=== PATIENT | female | born 1975 | race African-American/Black ===

== ENCOUNTER 2019-06-15 20:24 | Inpatient (IN) | payer OTHER ==
--- NOTE | 2019-06-15 20:30 | PDOC ---
Rapid Medical Evaluation Time Seen by Provider: 06/15/19 20:30 Medical Evaluation: 06/15/19 20:30 I performed a brief in-person evaluation of this patient. 44-year-old female with right upper back abscess for 2 wks, now draining, reports temp 100.0 at home. Pertinent physical exam findings: Afebrile I have ordered the following: None Patient to present to FT for further evaluation. Discharge Disposition - Diagnosis Abscess - Referrals - Patient Instructions - Post Discharge Activity
[2019-06-15 20:35] VITALS: BMI 27.4
--- NOTE | 2019-06-15 22:34 | PDOC ---
*Physical Exam - Vital Signs Last Vital Signs Temp Pulse Resp BP Pulse Ox 98.2 F 100 H 20 182/89 H 99 06/15/19 20:33 06/15/19 20:33 06/15/19 20:33 06/15/19 20:33 06/15/19 20:33 ED Treatment Course - LABORATORY CBC & Chemistry Diagram: 06/16/19 11:33 06/16/19 11:33 Medical Decision Making - Medical Decision Making 06/15/19 22:33 Patient seen by the advanced practice provider under my direct supervision. Ancillary testing reviewed as necessary. I agree with plan as outlined by the advanced practice provider. Discharge - Discharge Information Problems reviewed: Yes Clinical Impression/Diagnosis: Cellulitis of back, Hyperglycemia Disposition: HOME - Follow up/Referral - Patient Discharge Instructions - Post Discharge Activity
[2019-06-15] MEDS ORDERED: CLINDAMYCIN 300 MG PREMIX IVPB 300 MG/50 ML BAG IVPB ONE (22:56)
[2019-06-15 23:15] LABS: BASO % 0.8 % (0-2.0); EOS % 4.4 % (0-4.5); HEMATOCRIT 32.9 % (32.4-45.2); HEMOGLOBIN 11.1 GM/dL (10.7-15.3); LYMPH % 26.7 % (8-40); MCHC 33.8 g/dl (32.0-36.0); MEAN CELL VOLUME 82.8 fl (80-96); NEUT % 59.1 % (42.8-82.8); PLATELET COUNT 496 K/MM3 (134-434); RBC 3.97 M/mm3 (3.60-5.2); RDW 13.3 % (11.6-15.6); WHITE BLOOD COUNT 9.9 K/mm3 (4.0-10.0)
[2019-06-15 23:29] LABS: INR 1.08 (0.83-1.09); PROTHROMBIN TIME (PATIENT) 12.7 SEC (9.7-13.0)
[2019-06-15 23:49] LABS: ALBUMIN 2.3 g/dl (3.4-5.0); BILIRUBIN,TOTAL 0.2 mg/dL (0.2-1); BLOOD UREA NITROGEN 10.5 mg/dL (7-18); CREATININE 0.7 mg/dL (0.55-1.3); POTASSIUM 4.2 mmol/L (3.5-5.1); TOT PROT 7.5 g/dl (6.4-8.2)
[2019-06-15] MEDS ORDERED: SODIUM CHLORIDE 1,000 ML IV STA (23:54)
--- NOTE | 2019-06-15 23:57 | PDOC ---
History of Present Illness - General Chief Complaint: Abscess Boil Stated Complaint: CHILLS/FEVER/ABSCESS ON BACK Time Seen by Provider: 06/15/19 20:30 History Source: Patient - History of Present Illness Initial Comments: 06/16/19 00:22 44-year-old female reports that she has a history of folliculitis noted pimple to the upper back 14 days ago. Patient reports that wound is nonhealing and is draining copious amount of pus. Patient reports that she had fever for couple of days. Denies fever for the last few days. Denies nausea, vomiting, diarrhea , abdominal pain. No past medical history No PCP Past History - Past Medical History Allergies/Adverse Reactions: Allergies Allergy/AdvReac Type Severity Reaction Status Date / Time No Known Allergies Allergy Verified 06/15/19 23:33 Asthma: Yes COPD: No - Psycho Social/Smoking Cessation Hx Smoking History: Never smoked *Physical Exam - Vital Signs Last Vital Signs Temp Pulse Resp BP Pulse Ox 97.9 F 100 H 19 149/81 100 06/15/19 22:55 06/15/19 22:55 06/15/19 22:55 06/15/19 22:55 06/15/19 22:55 - Physical Exam General Appearance: Yes: Appropriately Dressed Respiratory/Chest: positive: Lungs Clear, Normal Breath Sounds Integumentary: positive: Other (cavitating pus drainng wound to right upper back with surrounding erythema) Neurologic: positive: Fully Oriented, Alert ED Treatment Course - LABORATORY CBC & Chemistry Diagram: 06/15/19 22:50 06/15/19 22:50 - ADDITIONAL ORDERS Additional order review: Laboratory Results 06/15/19 06/15/19 22:50 22:50 PT with INR 12.70 INR 1.08 PTT (Actin FS) 36.0 Sodium 134 L Potassium 4.2 Chloride 96 L Carbon Dioxide 33 H Anion Gap 5 L BUN 10.5 Creatinine 0.7 Est GFR (CKD-EPI)AfAm 120.43 Est GFR (CKD-EPI)NonAf 103.90 Random Glucose 435 H* Calcium 9.0 Total Bilirubin 0.2 AST 17 ALT 18 Alkaline Phosphatase 180 H Total Protein 7.5 Albumin 2.3 L 06/15/19 22:50 RBC 3.97 MCV 82.8 MCHC 33.8 RDW 13.3 MPV 9.0 Neutrophils % 59.1 Lymphocytes % 26.7 Monocytes % 9.0 Eosinophils % 4.4 Basophils % 0.8 ED Progress Note - Progress Note Progress Note: 06/16/19 00:44 A: cellulitis and abscess P: labs IVF IV antibiotics Medical Decision Making - Medical Decision Making 06/16/19 03:00 patient signed out to Dr. baltazar/ Dr. Shaw Discharge - Discharge Information Problems reviewed: Yes Clinical Impression/Diagnosis: Cellulitis of back, Hyperglycemia Disposition: HOME - Admission Yes - Follow up/Referral - Patient Discharge Instructions - Post Discharge Activity
--- NOTE | 2019-06-16 02:07 | PN ---
Teaching Attending Note Name of Resident: Juan Currie ATTENDING PHYSICIAN STATEMENT I saw and evaluated the patient. I reviewed the resident's note and discussed the case with the resident. I agree with the resident's findings and plan as documented. SUBJECTIVE: Patient is a 44 year old woman with a PMH of Folliculitis who presents with a pimple to the upper back for 14 days. Patient reports that wound is nonhealing and is draining copious amount of pus. Patient reports that she had fever for couple of days. Denies fever for the last few days. Denies nausea, vomiting, diarrhea, abdominal pain, chest pain, SOB, palpitations, dysuria, headache or dizziness. Denies alcohol, tobacco or illicit drug use. No sick contacts or recent travels. Has FH of DM and HTN in father. 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 LMP was late April 2019. OBJECTIVE: Alert Vital Signs Period Temp Pulse Resp BP Sys/Street Pulse Ox Last 24 Hr 97.9 F-98.2 F 100-100 19-20 149-182/81-89 99-100 HEENT: No Jaundice, eye redness or discharge, PERRLA, EOMI. Normocephalic, atraumatic. External ears are normal and hearing is grossly intact. No nasal discharge. Neck: Supple, nontender. No palpable adenopathy or thyromegaly. No JVD Chest: Good effort. Clear to auscultation and percussion. Heart: Regular. No S3, rub or murmur Abdomen: Not distended, soft, nontender and no HSM. No rebound or guarding. Normal bowel sounds. Ext: Peripheral pulses intact. No leg edema. Skin: Warm and dry. No petechiae, rash or ecchymosis. Abscesses in right upper back with pus drainage and surrounding erythema. Neuro: Alert. Oriented x3. CN 2-12 grossly intact. Sensation grossly intact in all four extremities and DTR are symmetric. Psych: Appropriate mood and affect. Good insight. Abnormal Lab Results 06/15/19 06/15/19 22:50 22:50 Plt Count 496 H Sodium 134 L Chloride 96 L Carbon Dioxide 33 H Anion Gap 5 L Random Glucose 435 H* Alkaline Phosphatase 180 H Albumin 2.3 L ASSESSMENT AND PLAN: 1. Upper back abscess and cellulitis - Wound culture sent and sepsis workup done. Likely has new onset DM - will treat with IV Vancomycin and Zosyn, IV NS and provide daily wound care. Consult ID and Surgery for I&D. EKG shows NSR with LAE, septal infarct of undetermined age, ST-T wave changes suggestive of lateral ischemia. No old EKG available for comparison. Will repeat EKG and get troponin. 2. New onset DM Will get HbA1c, give SQ insulin, start Metformin and implement sliding scale insulin regimen. Continue IV NS, monitor and replete K+ . Consult Endocrine. Provide comprehensive diabetes care with patient teaching and counseling about the importance of adherence to prescribed diabetes regimen , euglycemia, eye care and foot care. Get patient-friendly educational materials about DM for the patient. 3. Hypoalbuminemia - Possibly due to combined effects of malnutrition and inflammation associated with comorbid chronic conditions. Will ensure adequate dietary protein intake and also consult inspector air carrier. 4. Overweight Counseled on the risks associated with being overweight. Will provide patient all the necessary assistance, counseling and positive reinforcement to facilitate weight loss. Consult inspector air carrier. 5. Undiagnosed Hypertension - May have undiagnosed hypertension. Will repeat BP tomorrow and next to confirm. Will start her on Lisinopril 10 mg bid. Patient counseled on the injurious effects of uncontrolled hypertension. Nonpharmacologic measures to control hypertension like weight loss, salt restriction and exercise discussed. Importance of adherence to treatment regimen and attainment of normotension emphasized. 6. DVT prophylaxis - SCD 7. Advance directives - Full code
[2019-06-16 02:36] LABS: URINE APPEARANCE CLEAR; URINE COLOR YELLOW
[2019-06-16 02:37] LABS: PH,URINE 6.5 (5.0-8.0); URINE BILIRUBIN NEGATIVE (NEGATIVE); URINE GLUCOSE (UA) >=1000 (NEGATIVE); URINE KETONE NEGATIVE (NEGATIVE); URINE NITRITE NEGATIVE (NEGATIVE); URINE PROTEIN NEGATIVE (NEGATIVE)
[2019-06-16 02:38] LABS: EPI CELLS 2.8 /HPF (0-5/HPF); HYALINE CASTS 0 /lpf (0-8); URINE BACTERIA 29.8 /hpf (NEGATIVE); URINE LEUK ESTERASE NEGATIVE (NEGATIVE); URINE RBC 1.4 /hpf (0-4); URINE WBC 7.9 /hpf (0-5)
--- NOTE | 2019-06-16 06:01 | HP ---
CHIEF COMPLAINT: Abscess on the posterior aspect of her right shoulder for the past 2 weeks PCP: None HISTORY OF PRESENT ILLNESS: This is a 44 year old female with no significant PMH. She presented to the ER with complaints of an abscess on the posterior aspect of her right shoulder for the past 2 weeks, which has recently began to produce a discharge over the past few days. This has been associated with intermittent fevers and chills, recorded at 102 at home a few days ago, although she is not currently complaining of any chills and is afebrile. She denies any dizziness, AMS, light headedness, SOB, chest pain, palpitations, nausea, vomiting, diarrhea, constipation, dysuria, or hematuria since the abscess appeared. She can think of no inciting events that may have led to the formation of the abscess. She has not used any antibiotics, no new medications, no exposure to swimming pools or hot tubs, no history of shaving around the area, and no sick contacts with similar symptoms. 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 Her symptoms subsided without any treatment, and she has had no recurrence of symptoms. She does not follow with a PCP because she has never had any major symptoms. She has health insurance through her employment, and no socioeconomic barriers to healthcare access were identified. She has never been diagnosed with DM or HTN. ER course was notable for: (1) Clindamycin 300mg (2) Glucose 435 (3) B/P 182/89 -> 149/84 Recent Travel: denies PAST MEDICAL HISTORY: none PAST SURGICAL HISTORY: in 2007 Social History: Smoking: denies Alcohol: denies Drugs: denies Not currently sexually active, no OCP or contraception use, no history of STDs LMP was last week of Apr 2019, no irregularities in menstrual cycle She has not seen a PCP because she has never had any major symptoms. She has health insurance through her employment, and no socioeconomic barriers to healthcare access were identified. Allergies No Known Allergies Allergy (Verified 06/15/19 23:33) HOME MEDICATIONS: REVIEW OF SYSTEMS CONSTITUTIONAL: fevers, chills Absent: fever, chills, diaphoresis, generalized weakness, malaise, loss of appetite, weight change HEENT: Absent: rhinorrhea, nasal congestion, throat pain, throat swelling, difficulty swallowing, mouth swelling, ear pain, eye pain, visual changes CARDIOVASCULAR: Absent: chest pain, syncope, palpitations, irregular heart rate, lightheadedness , peripheral edema RESPIRATORY: Absent: cough, shortness of breath, dyspnea with exertion, orthopnea, wheezing, stridor, hemoptysis GASTROINTESTINAL: Absent: abdominal pain, abdominal distension, nausea, vomiting, diarrhea, constipation, melena, hematochezia GENITOURINARY: Absent: dysuria, frequency, urgency, hesitancy, hematuria, flank pain, genital pain MUSCULOSKELETAL: Absent: myalgia, arthralgia, joint swelling, back pain, neck pain SKIN: Absent: rash, itching, pallor HEMATOLOGIC/IMMUNOLOGIC: Absent: easy bleeding, easy bruising, lymphadenopathy, frequent infections ENDOCRINE: Absent: unexplained weight gain, unexplained weight loss, heat intolerance, cold intolerance NEUROLOGIC: Absent: headache, focal weakness or paresthesias, dizziness, unsteady gait, seizure, mental status changes, bladder or bowel incontinence PSYCHIATRIC: Absent: anxiety, depression, suicidal or homicidal ideation, hallucinations. PHYSICAL EXAMINATION Vital Signs - 24 hr 06/15/19 06/15/19 20:33 22:55 Temperature 98.2 F 97.9 F Pulse Rate 100 H Pulse Rate [ 100 H Right Radial] Respiratory 20 19 Rate Blood Pressure 182/89 H Blood Pressure 149/81 [Left Arm] O2 Sat by Pulse 99 100 Oximetry (%) GENERAL: AOx3 HEAD: Normal with no signs of trauma. EYES: Pupils equal, round and reactive to light, extraocular movements intact, sclera anicteric, conjunctiva clear. No lid lag. EARS, NOSE, THROAT: Ears normal, nares patent, oropharynx clear without exudates. Moist mucous membranes. NECK: Normal range of motion, supple without lymphadenopathy, JVD, or masses. LUNGS: Breath sounds equal, clear to auscultation bilaterally. No wheezes, and no crackles. No accessory muscle use. HEART: Regular rate and rhythm, normal S1 and S2 without murmur, rub or gallop. ABDOMEN: Soft, nontender, not distended, normoactive bowel sounds, no guarding, no rebound, no masses. No hepatomegaly or splenomegaly. MUSCULOSKELETAL: Normal range of motion at all joints. No bony deformities or tenderness. No CVA tenderness. UPPER EXTREMITIES: 2+ pulses, warm, well-perfused. No cyanosis. No clubbing. No peripheral edema. LOWER EXTREMITIES: 2+ pulses, warm, well-perfused. No calf tenderness. No peripheral edema. NEUROLOGICAL: Cranial nerves II-XII intact. Normal speech. Normal gait. PSYCHIATRIC: Cooperative. Good eye contact. Appropriate mood and affect. SKIN: 5x4 cm fluctuant abscess draining at 3 sites, purulent discharge with surrounding erythema, tender to palpation Laboratory Results - last 24 hr 06/15/19 06/15/19 06/15/19 22:50 22:50 22:50 WBC 9.9 RBC 3.97 Hgb 11.1 Hct 32.9 MCV 82.8 MCH 28.0 MCHC 33.8 RDW 13.3 Plt Count 496 H MPV 9.0 Absolute Neuts (auto) 5.9 Neutrophils % 59.1 Lymphocytes % 26.7 Monocytes % 9.0 Eosinophils % 4.4 Basophils % 0.8 Nucleated RBC % 0 PT with INR 12.70 INR 1.08 PTT (Actin FS) 36.0 Sodium 134 L Potassium 4.2 Chloride 96 L Carbon Dioxide 33 H Anion Gap 5 L BUN 10.5 Creatinine 0.7 Est GFR (CKD-EPI)AfAm 120.43 Est GFR (CKD-EPI)NonAf 103.90 Random Glucose 435 H* Calcium 9.0 Total Bilirubin 0.2 AST 17 ALT 18 Alkaline Phosphatase 180 H Total Protein 7.5 Albumin 2.3 L Urine Color Urine Appearance Urine pH Ur Specific [place] Urine Protein Urine Glucose (UA) Urine Ketones Urine Blood Urine Nitrite Urine Bilirubin Urine Urobilinogen Ur Leukocyte Esterase Urine WBC (Auto) Urine RBC (Auto) Urine Casts (Auto) U Epithel Cells (Auto) Urine Bacteria (Auto) 06/16/19 00:00 WBC RBC Hgb Hct MCV MCH MCHC RDW Plt Count MPV Absolute Neuts (auto) Neutrophils % Lymphocytes % Monocytes % Eosinophils % Basophils % Nucleated RBC % PT with INR INR PTT (Actin FS) Sodium Potassium Chloride Carbon Dioxide Anion Gap BUN Creatinine Est GFR (CKD-EPI)AfAm Est GFR (CKD-EPI)NonAf Random Glucose Calcium Total Bilirubin AST ALT Alkaline Phosphatase Total Protein Albumin Urine Color Yellow Urine Appearance Clear Urine pH 6.5 Ur Specific [place] 1.045 H Urine Protein Negative Urine Glucose (UA) >=1000 Urine Ketones Negative Urine Blood Negative Urine Nitrite Negative Urine Bilirubin Negative Urine Urobilinogen 1.0 Ur Leukocyte Esterase Negative Urine WBC (Auto) 7.9 Urine RBC (Auto) 1.4 Urine Casts (Auto) 0 U Epithel Cells (Auto) 2.8 Urine Bacteria (Auto) 29.8 ASSESSMENT/PLAN: 44F with no significant PMH, presented to the ER with rt shoulder abscess for 2 weeks associated with intermittent fevers/chills. Also found to have glucose 435 , likely undiagnosed DM. #Abscess with cellulitis - Unclear etiology, undiagnosed DM may contribute to increased wound susceptibility - Started on Vanc 1g OD and Zosyn 3.375 Q8, will cover MRSA and G positive, GNB. Given Clinda 300mg IV in ER - Surgical consult placed for possible I&D with Dr. Ramirez - ID consult placed with Dr. Mendenhall - Wound, blood cx placed #Newly diagnosed DM - Glucose 435 with >1000 glucose on UA - BGM ACHS - Novolog SS started - HbA1c and lipids ordered - Should start patient on metformin on D/C with PCP, opthalmologist, and podiatry F/U #Elevated BP - May be due to whitecoat HTN - Home BP monitoring on D/C - Started on Lisinopril 10mg due to DM #Thrombocytosis - Pt 496 - May be due to dehydration - Will hydrate and F/U in AM #FEN - Administered N/S 1L in ER - Na 135, will continue to monitor - Diabetic started #DVT - Lovenox 40mg Visit type - Emergency Visit Emergency Visit: Yes ED Registration Date: 06/16/19 Care time: The patient presented to the Emergency Department on the above date and was hospitalized for further evaluation of their emergent condition. - New Patient This patient is new to me today: Yes Date on this admission: 06/25/19 - Critical Care Critical Care patient: No ATTENDING PHYSICIAN STATEMENT I saw and evaluated the patient. I reviewed the resident's note and discussed the case with the resident. I agree with the resident's findings and plan as documented. SUBJECTIVE: OBJECTIVE: ASSESSMENT AND PLAN:
[2019-06-16] MEDS ORDERED: VANCOMYCIN 1 GRAM (PRE-DOCKED) 1,000 MG/250 ML BAG IVPB ONE (06:23)
[2019-06-16] MEDS ORDERED: VANCOMYCIN 1 GRAM (PRE-DOCKED) 1,000 MG/250 ML BAG IVPB SCH (06:30)
[2019-06-16] MEDS ORDERED: PIPERACILLIN/TAZOB 3.375 GM 3.375 GM in DEXTROSE 5%-WATER - 50 ML IVPB SCH (08:00)
[2019-06-16] MEDS ORDERED: ENOXAPARIN NA (PORCINE) 40 MG/0.4 ML DISP.SYRIN SQ SCH (10:00)
[2019-06-16] MEDS: INSULIN SLIDING SCALE (NOVOLOG) 1 VIAL SQ SCH ×4 (10:49→21:23)
[2019-06-16] MEDS: LISINOPRIL 10 MG TABLET (FP) PO SCH (10:58)
--- NOTE | 2019-06-16 11:29 | EKG ---
Test Reason : Blood Pressure : / mmHG Vent. Rate : 099 BPM Atrial Rate : 099 BPM P-R Int : 140 ms QRS Dur : 086 ms QT Int : 372 ms P-R-T Axes : 072 058 140 degrees QTc Int : 477 ms NORMAL SINUS RHYTHM POSSIBLE LEFT ATRIAL ENLARGEMENT SEPTAL INFARCT , AGE UNDETERMINED ABNORMAL ECG NO PREVIOUS ECGS AVAILABLE Confirmed by Derick Short MD ([id number]) on 06/16/2019 11:28:35 AM Referred By: Confirmed By:Derick Short MD
[2019-06-16 11:43] LABS: BASO % 1.4 % (0-2.0); EOS % 2.9 % (0-4.5); HEMATOCRIT 31.4 % (32.4-45.2); HEMOGLOBIN 10.7 GM/dL (10.7-15.3); LYMPH % 30.3 % (8-40); MCH 27.9 pg (25.7-33.7); MEAN PLT VOLUME 8.4 fl (7.5-11.1); MONO % 5.4 % (3.8-10.2); PLATELET COUNT 469 K/MM3 (134-434); RBC 3.83 M/mm3 (3.60-5.2); RDW 12.9 % (11.6-15.6); WHITE BLOOD COUNT 8.6 K/mm3 (4.0-10.0)
[2019-06-16 12:10] LABS: ALBUMIN 2.3 g/dl (3.4-5.0); BILIRUBIN,TOTAL 0.3 mg/dL (0.2-1); BLOOD UREA NITROGEN 8.6 mg/dL (7-18); CALCIUM 8.7 mg/dL (8.5-10.1); CREATININE 0.6 mg/dL (0.55-1.3); POTASSIUM 3.2 mmol/L (3.5-5.1)
--- NOTE | 2019-06-16 12:10 | PN ---
Physical Exam: SUBJECTIVE: Patient seen and examined at bedside. Pt is in pain at the abscess site. OBJECTIVE: Vital Signs Period Temp Pulse Resp BP Sys/Street Pulse Ox Last 24 Hr 97.9 F-98.5 F 94-105 16-20 133-182/77-93 98-100 GENERAL: The patient is awake, alert, and fully oriented, in no acute distress. HEAD: Normal with no signs of trauma. NECK: supple. LUNGS: Breath sounds equal, clear to auscultation bilaterally, no wheezes, no crackles, no accessory muscle use. HEART: Regular rate and rhythm, S1, S2 without murmur, rub or gallop. ABDOMEN: Soft, nontender, nondistended, normoactive bowel sounds. EXTREMITIES: 2+ pulses, warm, well-perfused, no edema. NEUROLOGICAL: Cranial nerves II through XII grossly intact. Normal speech, gait not observed. PSYCH: Normal mood, normal affect. SKIN: Warm, what looks like 3 Abscesses in right upper back with white/yellow pus draining with surrounding erythema. Laboratory Results - last 24 hr 06/15/19 06/15/19 06/15/19 22:50 22:50 22:50 WBC 9.9 RBC 3.97 Hgb 11.1 Hct 32.9 MCV 82.8 MCH 28.0 MCHC 33.8 RDW 13.3 Plt Count 496 H MPV 9.0 Absolute Neuts (auto) 5.9 Neutrophils % 59.1 Lymphocytes % 26.7 Monocytes % 9.0 Eosinophils % 4.4 Basophils % 0.8 Nucleated RBC % 0 PT with INR 12.70 INR 1.08 PTT (Actin FS) 36.0 Sodium 134 L Potassium 4.2 Chloride 96 L Carbon Dioxide 33 H Anion Gap 5 L BUN 10.5 Creatinine 0.7 Est GFR (CKD-EPI)AfAm 120.43 Est GFR (CKD-EPI)NonAf 103.90 POC Glucometer Random Glucose 435 H* Calcium 9.0 Total Bilirubin 0.2 AST 17 ALT 18 Alkaline Phosphatase 180 H Total Protein 7.5 Albumin 2.3 L Triglycerides Cholesterol Total LDL Cholesterol HDL Cholesterol Thyroxine (T4) Resin T3 Uptake Urine Color Urine Appearance Urine pH Ur Specific [place] Urine Protein Urine Glucose (UA) Urine Ketones Urine Blood Urine Nitrite Urine Bilirubin Urine Urobilinogen Ur Leukocyte Esterase Urine WBC (Auto) Urine RBC (Auto) Urine Casts (Auto) U Epithel Cells (Auto) Urine Bacteria (Auto) 06/16/19 06/16/19 06/16/19 00:00 10:45 11:33 WBC 8.6 RBC 3.83 Hgb 10.7 Hct 31.4 L MCV 82.0 MCH 27.9 MCHC 34.0 RDW 12.9 Plt Count 469 H MPV 8.4 Absolute Neuts (auto) 5.1 Neutrophils % 60.0 Lymphocytes % 30.3 Monocytes % 5.4 Eosinophils % 2.9 Basophils % 1.4 Nucleated RBC % 0 PT with INR INR PTT (Actin FS) Sodium Potassium Chloride Carbon Dioxide Anion Gap BUN Creatinine Est GFR (CKD-EPI)AfAm Est GFR (CKD-EPI)NonAf POC Glucometer 372 Random Glucose Calcium Total Bilirubin AST ALT Alkaline Phosphatase Total Protein Albumin Triglycerides Cholesterol Total LDL Cholesterol HDL Cholesterol Thyroxine (T4) Resin T3 Uptake Urine Color Yellow Urine Appearance Clear Urine pH 6.5 Ur Specific [place] 1.045 H Urine Protein Negative Urine Glucose (UA) >=1000 Urine Ketones Negative Urine Blood Negative Urine Nitrite Negative Urine Bilirubin Negative Urine Urobilinogen 1.0 Ur Leukocyte Esterase Negative Urine WBC (Auto) 7.9 Urine RBC (Auto) 1.4 Urine Casts (Auto) 0 U Epithel Cells (Auto) 2.8 Urine Bacteria (Auto) 29.8 06/16/19 11:33 WBC RBC Hgb Hct MCV MCH MCHC RDW Plt Count MPV Absolute Neuts (auto) Neutrophils % Lymphocytes % Monocytes % Eosinophils % Basophils % Nucleated RBC % PT with INR INR PTT (Actin FS) Sodium 134 L Potassium 3.2 L Chloride 97 L Carbon Dioxide 30 Anion Gap 7 L BUN 8.6 Creatinine 0.6 Est GFR (CKD-EPI)AfAm 126.69 Est GFR (CKD-EPI)NonAf 109.31 POC Glucometer Random Glucose 331 H Calcium 8.7 Total Bilirubin 0.3 AST 16 ALT 18 Alkaline Phosphatase 169 H Total Protein 7.0 Albumin 2.3 L Triglycerides 142 Cholesterol 164 Total LDL Cholesterol 109 H HDL Cholesterol 29 L Thyroxine (T4) 12.3 Resin T3 Uptake 35.6 Urine Color Urine Appearance Urine pH Ur Specific [place] Urine Protein Urine Glucose (UA) Urine Ketones Urine Blood Urine Nitrite Urine Bilirubin Urine Urobilinogen Ur Leukocyte Esterase Urine WBC (Auto) Urine RBC (Auto) Urine Casts (Auto) U Epithel Cells (Auto) Urine Bacteria (Auto) Active Medications Generic Name Dose Route Start Last Admin Trade Name Freq PRN Reason Stop Dose Admin Enoxaparin Sodium 40 mg 06/16/19 10:00 06/16/19 10:58 Lovenox - SQ 40 mg DAILY BARBARA Administration Piperacillin Sod/Tazobactam 50 mls @ 100 mls/hr 06/16/19 08:00 06/16/19 10:30 Sod 3.375 gm/ Dextrose IVPB 06/17/19 02:29 100 mls/hr Q8H-IV BARBARA Administration Protocol Vancomycin HCl 1,000 mg in 250 mls @ 166.667 mls/hr 06/17/19 06:30 Vancomycin (Pre-Docked) IVPB Q24H BARBARA Piperacillin Sod/Tazobactam 50 mls @ 100 mls/hr 06/17/19 10:00 Sod 3.375 gm/ Dextrose IVPB Q8H-IV BARBARA Protocol Insulin Aspart 1 vial 06/16/19 07:00 06/16/19 11:47 Novolog Vial Sliding Scale - SQ Not Given ACHS BARBARA Protocol Lisinopril 10 mg 06/16/19 10:00 06/16/19 10:58 Prinivil PO 10 mg DAILY BARBARA Administration ASSESSMENT/PLAN: 44F with no significant PMH, presented to the ER with rt shoulder abscess for 2 weeks associated with intermittent fevers/chills. Also found to have glucose 435 , likely undiagnosed DM. #Abscess with cellulitis - Unclear etiology, undiagnosed DM may contribute to increased wound susceptibility - Started on Vanc 1g OD and Zosyn 3.375 Q8, will cover MRSA and G positive, GNB. Given Clinda 300mg IV in ER - Surgical consult placed for possible I&D with Dr. Ramirez - ID consult placed with Dr. Mendenhall - Wound, blood cx placed #Newly diagnosed DM - Glucose 435 with >1000 glucose on UA - BGM ACHS - Novolog SS started - HbA1c and lipids ordered - Should start patient on metformin on D/C with PCP, opthalmologist, and podiatry F/U #Elevated BP - May be due to whitecoat HTN - Home BP monitoring on D/C - Started on Lisinopril 10mg due to DM #Thrombocytosis - Pt 496 - May be due to dehydration - Will hydrate and F/U in AM #FEN - Administered N/S 1L in ER - Na 135, will continue to monitor - Diabetic started #DVT - Lovenox 40mg ATTENDING PHYSICIAN STATEMENT I saw and evaluated the patient. I reviewed the resident's note and discussed the case with the resident. I agree with the resident's findings and plan as documented. SUBJECTIVE: OBJECTIVE: ASSESSMENT AND PLAN:
--- NOTE | 2019-06-16 12:19 | PN ---
Progress Note (short form) - Note Progress Note: ID CONSULT DICTATED LARGE SOFT TISSUE ABSCESS R BACK NEW ONSET DM AWAIT C/S SURGICAL EVALUATION EMPIRIC VANCOMYCIN/ ZOSYN
--- NOTE | 2019-06-16 12:52 | CONS ---
INFECTIOUS DISEASE CONSULTATION DATE OF CONSULTATION: DATE OF DICTATION: 06/16/2019 HISTORY: The patient is a 44-year-old previously healthy female evaluated for soft tissue abscess of the left back. She reports developing a folliculitis on the upper part of her right back approximately 2 weeks ago. It became progressively larger and began to drain purulent fluid. She reported associated fever. She presented to the emergency room where she was evaluated. She was found to have a soft tissue abscess of the right upper back draining purulent fluid. The patient was also noted to have markedly elevated blood sugar, which is new. She denies a history of serious soft tissue infection requiring hospitalization. She denies a history of MRSA. 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 PAST MEDICAL HISTORY: Positive for folliculitis in the past. No previous [facility] admissions on record. PAST SURGICAL HISTORY: Status post section. ALLERGIES: No known allergies. MEDICATIONS: Include vancomycin, Zosyn, clindamycin, Lovenox, lisinopril. 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 Nonsmoker, nondrinker. SYSTEMS REVIEW: Neurologic: No loss of consciousness, seizure activity, focal weakness. Cardiac: Negative chest pain or palpitations. Respiratory: Negative cough or sputum production. Gastrointestinal: Negative vomiting or diarrhea. Genitourinary: Negative for urinary tract infection. LABORATORY DATA: White count 9.9, creatinine 0.7, glucose 435. Blood and wound cultures are pending. PHYSICAL EXAMINATION: General: She is awake. She is not acutely toxic appearing. Vital Signs: Temperature 98.5, blood pressure 133/77, pulse 94 regular, respirations 16 per minute. HEENT: Sclerae anicteric. Heart: Sounds S1, S2. No murmur. Lungs: Clear. Abdomen: Soft, nontender. Extremities: Negative for edema. Skin: Examination of the back, there is a large, soft tissue abscess approximately 7-8 cm in diameter below the right scapula. There is gross purulent drainage. There is no crepitus or fluctuance. There is surrounding induration. No erythema noted. IMPRESSION: 1. Large soft tissue abscess, right back. 2. New onset diabetes mellitus. PLAN: Await cultures. Suspect staph infection either MSSA or MRSA, more likely MRSA in this healthcare worker. Surgical evaluation. Empiric antibiotic coverage with Zosyn and vancomycin. Local wound care. Thank you for the kind referral. YASMINE JAMISON M.D. [id number]
[2019-06-16] MEDS ORDERED: DEXTROSE 5%-WATER - 50 ML IVPB ONE (17:08)
[2019-06-16] MEDS ORDERED: PIPERACILLIN/TAZOBACTAM 3.375 GM VIAL IVPB ONE (17:08)
[2019-06-16] MEDS: POTASSIUM CHLORIDE TABS 20 MEQ TABLET.ER (FP) PO SCH ×2 (17:25→21:15)
[2019-06-16] MEDS: PIPERACILLIN/TAZOB 3.375 GM 3.375 GM in DEXTROSE 5%-WATER - 50 ML IVPB SCH (17:26)
[2019-06-16] MEDS: VANCOMYCIN 1 GRAM (PRE-DOCKED) 1,000 MG/250 ML BAG IVPB SCH (18:31)
[2019-06-17] MEDS ORDERED: DEXTROSE 5%-WATER - 50 ML IVPB ONE ×3 (00:17→17:41)
[2019-06-17] MEDS ORDERED: PIPERACILLIN/TAZOBACTAM 3.375 GM VIAL IVPB ONE ×3 (00:17→17:41)
[2019-06-17] MEDS: ACETAMINOPHEN 1000 MG/100 ML VIAL (NON FORMULARY) IVPB SCH ×5 (00:18→16:52)
[2019-06-17] MEDS: PIPERACILLIN/TAZOB 3.375 GM 3.375 GM in DEXTROSE 5%-WATER - 50 ML IVPB SCH ×3 (01:57→18:03)
[2019-06-17] MEDS: VANCOMYCIN 1 GRAM (PRE-DOCKED) 1,000 MG/250 ML BAG IVPB SCH ×2 (05:39→18:03)
[2019-06-17] MEDS ORDERED: VANCOMYCIN 1 GRAM (PRE-DOCKED) 1,000 MG/250 ML BAG IVPB SCH (06:30)
[2019-06-17] MEDS: INSULIN SLIDING SCALE (NOVOLOG) 1 VIAL SQ SCH ×5 (06:55→23:22)
--- NOTE | 2019-06-17 07:46 | CONSULT ---
- Consultation REQUESTING PROVIDER: CONSULT REQUEST: We have been asked to surgically evaluate this patient for back abscess. PCP:Alesha Thomas HISTORY OF PRESENT ILLNESS: Patient is a 44 year old woman with a PMH of Folliculitis who presents with an abscess on her right scapula which has been getting progressively worse over 2 weeks. Patient reports that she had fever for couple of days and now the abscess has opened and in draining copious amounts of puss. Patient was diagnosed with DM and HTN during this admission and does not take any medications at home. She Denies nausea, vomiting, diarrhea, abdominal pain, chest pain, SOB, palpitations, dysuria, headache or dizziness, alcohol, tobacco or illicit drug use. No sick contacts or recent travels. Has FH of DM and HTN in father. 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 LMP was late April 2019. Recent Travel: denies PAST MEDICAL HISTORY: none PAST SURGICAL HISTORY: in 2007 Social History: Smoking: denies Alcohol: denies Drugs: denies Not currently sexually active, no OCP or contraception use, no history of STDs LMP was last week of Apr 2019, no irregularities in menstrual cycle She has not seen a PCP because she has never had any major symptoms. She has health insurance through her employment, and no socioeconomic barriers to healthcare access were identified. Allergies No Known Allergies Allergy (Verified 06/15/19 23:33) No home medications REVIEW OF SYSTEMS CONSTITUTIONAL: +fever/chills Absent: diaphoresis, generalized weakness, malaise, loss of appetite, weight change HEENT: Absent: rhinorrhea, nasal congestion, throat pain, throat swelling, difficulty swallowing, CARDIOVASCULAR: Absent: chest pain, syncope, palpitations, irregular heart rate, RESPIRATORY: Absent: cough, shortness of breath, dyspnea with exertion, GASTROINTESTINAL: Absent: abdominal pain, abdominal distension, nausea, vomiting, diarrhea, GENITOURINARY: Absent: dysuria, frequency, urgency, hesitancy, MUSCULOSKELETAL: Absent: myalgia, arthralgia, joint swelling, SKIN: Absent: + abscess at right scapula, rash, itching, pallor HEMATOLOGIC/IMMUNOLOGIC: Absent: easy bleeding, easy bruising, lymphadenopathy, frequent infections ENDOCRINE: Absent: unexplained weight gain, unexplained weight loss, NEUROLOGIC: Absent: headache, focal weakness or paresthesias, dizziness, PSYCHIATRIC: Absent: anxiety, depression, suicidal or homicidal ideation, hallucinations. PHYSICAL EXAMINATION GENERAL: AOx3 HEAD: Normal with no signs of trauma. EYES: sclera anicteric, conjunctiva clear. No lid lag. LUNGS: Unlabored resp on RA, No accessory muscle use. MUSCULOSKELETAL: moving all extremities without limitation. UPPER EXTREMITIES: warm, well-perfused. No cyanosis. No clubbing. No peripheral edema. LOWER EXTREMITIES:warm, well-perfused. No calf tenderness. No peripheral edema. NEUROLOGICAL: Cranial nerves II-XII intact. Normal speech. PSYCHIATRIC: Cooperative. Good eye contact. Appropriate mood and affect. SKIN: 5x4 cm fluctuant abscess draining at 3 sites, purulent discharge with surrounding erythema, tender to palpation Vital Signs Temp 98.3 F 06/17/19 06:17 Pulse 88 06/17/19 06:17 Resp 17 06/17/19 06:17 BP 116/68 06/17/19 06:17 Pulse Ox 100 06/17/19 06:17 Intake & Output 06/16/19 06/16/19 06/17/19 11:59 23:59 11:59 Intake Total 540 370 Balance 540 370 Weight 160 lb Intake: IVPB 370 Oral 540 Other: Voiding Method Toilet Toilet # Unmeasured Voids Void 1 Height 5 ft 4 in Body Mass Index (BMI) 27.4 Weight Measurement Method Standing Scale Abnormal Lab Results 06/16/19 06/16/19 06/16/19 06:10 11:33 11:33 Hct 31.4 L Plt Count 469 H Sodium 134 L Potassium 3.2 L Chloride 97 L Anion Gap 7 L Random Glucose 331 H Hemoglobin A1c % 14.1 H Alkaline Phosphatase 169 H Albumin 2.3 L Total LDL Cholesterol 109 H HDL Cholesterol 29 L CBC, BMP 06/17/19 07:20 06/17/19 07:20 Problem List - Problems (1) Abscess Assessment/Plan: Right upper back abscess in the setting of newly diagnosed DM and HTN. Patient will need I&D in the OR this morning. 1) NPO for OR this morning 2) f/u wound cultures 3) IV ABX per ID 4) Pain control Evaluation plan discussed with Dr Frey. Problems reviewed: Yes Code(s): L02.91 - CUTANEOUS ABSCESS, UNSPECIFIED
[2019-06-17 07:59] LABS: EOS % 3.6 % (0-4.5); HEMATOCRIT 30.7 % (32.4-45.2); HEMOGLOBIN 10.2 GM/dl (10.7-15.3); LYMPH % 36.2 % (8-40); MCH 27.8 pg (25.7-33.7); MCHC 33.2 g/dl (32.0-36.0); MEAN CELL VOLUME 83.8 fl (80-96); MEAN PLT VOLUME 9.2 fl (7.5-11.1); MONO % 10.9 % (3.8-10.2); NEUT % 48.4 % (42.8-82.8); PLATELET COUNT 441 K/MM3 (134-434); RBC 3.67 M/mm3 (3.60-5.2); WHITE BLOOD COUNT 7.2 K/mm3 (4.0-10.8)
[2019-06-17 08:10] LABS: ALBUMIN 2.1 g/dl (3.4-5.0); BILIRUBIN,TOTAL 0.7 mg/dl (0.2-1); CALCIUM 8.2 mg/dl (8.5-10); CREATININE 0.5 mg/dl (0.55-1.3); MAGNESIUM 1.4 mg/dL (1.8-2.4); POTASSIUM 4.6 mmol/L (3.5-5.1); TOT PROT 6.4 g/dl (6.4-8.2)
[2019-06-17] MEDS: LISINOPRIL 10 MG TABLET (FP) PO SCH (09:13)
[2019-06-17] MEDS ORDERED: PIPERACILLIN/TAZOB 3.375 GM 3.375 GM in DEXTROSE 5%-WATER - 50 ML IVPB SCH (10:00)
[2019-06-17] MEDS ORDERED: MAGNESIUM SULF 50% (8.12 MEQ/2 ML-1 GM VIAL) IVPB ONE (10:50)
[2019-06-17] MEDS ORDERED: MAGNESIUM SULFATE IN WATER 2 GM/50 ML IVPB IVPB ONE (11:00)
[2019-06-17] MEDS ORDERED: ROCURONIUM BROMIDE 50 MG/5 ML SYRINGE ONE (11:28)
[2019-06-17] MEDS ORDERED: PROPOFOL 20 ML ONE (11:28)
[2019-06-17] MEDS ORDERED: fentaNYL CITRATE 250 MCG/5 ML VIAL ONE (11:28)
[2019-06-17] MEDS ORDERED: MIDAZOLAM HCL 2 MG/2 ML SINGLE DOSE VIAL ONE (11:28)
[2019-06-17] MEDS ORDERED: DEXAMETHASONE SOD PHOSPHATE 4 MG/1 ML VIAL ONE (12:08)
[2019-06-17] MEDS ORDERED: ONDANSETRON 4 MG/2 ML VIAL ONE (12:08)
[2019-06-17] MEDS ORDERED: LIDOCAINE HCL/PF 2% SDV 5ML VIAL ONE (12:08)
[2019-06-17] MEDS ORDERED: KETOROLAC TROMETHAMINE 30 MG/1 ML VIAL ONE (12:08)
[2019-06-17] MEDS ORDERED: LIDOCAINE HCL 2% JELLY (5 ML/TUBE) ONE (12:08)
[2019-06-17] MEDS ORDERED: ONDANSETRON 4 MG/2 ML VIAL IVPUSH PRN (12:52)
[2019-06-17] MEDS ORDERED: PROMETHAZINE HCL 25 MG/1 ML VIAL IVPUSH PRN (12:52)
[2019-06-17] MEDS ORDERED: oxyCODONE HCL 5 MG TABLET PO PRN (12:52)
[2019-06-17] MEDS ORDERED: ACETAMINOPHEN INJECTION 100 ML IVPB ONE (13:03)
--- NOTE | 2019-06-17 13:05 | OP ---
Operative Note - Note: Operative Date: 06/17/19 Pre-Operative Diagnosis: abscess right upper back Operation: I and D abscess and debridement of non viable skin and subcutaneous fat. Findings: abscess; devitalized skin and subcutaneous fat. Post-Operative Diagnosis: Same as Pre-op Surgeon: David Frey Anesthesiologist/FAT PRESSROOM WORKER: Robert Pendleton Anesthesia: General Specimens Removed: non viable skin and subcutaneous fat Estimated Blood Loss (mls): 5 Drains & Tubes with Location: 1.5 inch iodoform packing
[2019-06-17] MEDS ORDERED: INSULIN SLIDING SCALE (NOVOLOG) 1 VIAL SQ ONE (13:20)
[2019-06-17] MEDS: oxyCODONE HCL 5 MG TABLET PO PRN (21:40)
[2019-06-17] MEDS ORDERED: INSULIN (NOVOLOG) ASPART 100 UNITS/ML 10ML VIAL SQ ONE (22:56)
--- NOTE | 2019-06-18 01:02 | PN ---
Documentation entered by Tresa Venegas SCRIBE, acting as scribe for Alesha Thomas NP. Physical Exam: SUBJECTIVE: Patient seen and examined at bedside. Friend present. Comfortable, pain 2-3/10. Tolerated food post-op, voiding. OBJECTIVE: Vital Signs Period Temp Pulse Resp BP Sys/Street Pulse Ox Last 24 Hr 98.1 F-99.3 F 88-110 17-20 101-156/58-93 97-100 GENERAL: The patient is awake, alert, and fully oriented, in no acute distress. LUNGS: CTA HEART: Regular rate and rhythm, S1, S2 BACK: Large surgical dressing c/d/i, not disturbed, surgical site not visualized EXTREMITIES: 2+ pulses, warm, well-perfused, no edema. NEUROLOGICAL: Cranial nerves II through XII grossly intact. Normal speech, self- positions easily Laboratory Results - last 24 hr 06/16/19 06/16/19 06/16/19 06:10 10:45 11:33 WBC 8.6 RBC 3.83 Hgb 10.7 Hct 31.4 L MCV 82.0 MCH 27.9 MCHC 34.0 RDW 12.9 Plt Count 469 H MPV 8.4 Absolute Neuts (auto) 5.1 Neutrophils % 60.0 Lymphocytes % 30.3 Monocytes % 5.4 Eosinophils % 2.9 Basophils % 1.4 Nucleated RBC % 0 Sodium Potassium Chloride Carbon Dioxide Anion Gap BUN Creatinine Est GFR (CKD-EPI)AfAm Est GFR (CKD-EPI)NonAf POC Glucometer 372 Random Glucose Hemoglobin A1c % 14.1 H Calcium Magnesium Total Bilirubin AST ALT Alkaline Phosphatase Total Protein Albumin Triglycerides Cholesterol Total LDL Cholesterol HDL Cholesterol Thyroxine (T4) Resin T3 Uptake 06/16/19 06/16/19 06/16/19 11:33 17:11 21:20 WBC RBC Hgb Hct MCV MCH MCHC RDW Plt Count MPV Absolute Neuts (auto) Neutrophils % Lymphocytes % Monocytes % Eosinophils % Basophils % Nucleated RBC % Sodium 134 L Potassium 3.2 L Chloride 97 L Carbon Dioxide 30 Anion Gap 7 L BUN 8.6 Creatinine 0.6 Est GFR (CKD-EPI)AfAm 126.69 Est GFR (CKD-EPI)NonAf 109.31 POC Glucometer 295 235 Random Glucose 331 H Hemoglobin A1c % Calcium 8.7 Magnesium Total Bilirubin 0.3 AST 16 ALT 18 Alkaline Phosphatase 169 H Total Protein 7.0 Albumin 2.3 L Triglycerides 142 Cholesterol 164 Total LDL Cholesterol 109 H HDL Cholesterol 29 L Thyroxine (T4) 12.3 Resin T3 Uptake 35.6 06/17/19 06/17/19 06/17/19 06:37 07:20 07:20 WBC 7.2 RBC 3.67 Hgb 10.2 L Hct 30.7 L MCV 83.8 MCH 27.8 MCHC 33.2 RDW 12.0 Plt Count 441 H MPV 9.2 Absolute Neuts (auto) 3.4 Neutrophils % 48.4 Lymphocytes % 36.2 Monocytes % 10.9 H Eosinophils % 3.6 Basophils % Nucleated RBC % Sodium 130 L Potassium 4.6 Chloride 97 L Carbon Dioxide 28 Anion Gap 5 L BUN 10.0 Creatinine 0.5 L Est GFR (CKD-EPI)AfAm 134.52 Est GFR (CKD-EPI)NonAf 116.07 POC Glucometer 268 Random Glucose 289 H Hemoglobin A1c % Calcium 8.2 L Magnesium 1.4 L Total Bilirubin 0.7 AST 13 L ALT 13 Alkaline Phosphatase 112 Total Protein 6.4 Albumin 2.1 L Triglycerides Cholesterol Total LDL Cholesterol HDL Cholesterol Thyroxine (T4) Resin T3 Uptake Active Medications Generic Name Dose Route Start Last Admin Trade Name Freq PRN Reason Stop Dose Admin Acetaminophen 1,000 mg 06/16/19 22:00 06/17/19 03:23 Ofirmev Injection - IVPB 06/17/19 16:01 Not Given Q6H BARBARA Vancomycin HCl 1,000 mg in 250 mls @ 166.667 mls/hr 06/16/19 18:30 06/17/19 05:39 Vancomycin (Pre-Docked) IVPB 166.667 mls/hr Q12H BARBARA Administration Protocol Piperacillin Sod/Tazobactam 50 mls @ 100 mls/hr 06/16/19 18:00 06/17/19 01:57 Sod 3.375 gm/ Dextrose IVPB 100 mls/hr Q8H-IV BARBARA Administration Protocol Insulin Aspart 1 vial 06/16/19 07:00 06/17/19 06:55 Novolog Vial Sliding Scale - SQ 6 units ACHS BARBARA Administration Protocol Lisinopril 10 mg 06/16/19 10:00 06/16/19 10:58 Prinivil PO 10 mg DAILY BARBARA Administration ASSESSMENT/PLAN 44 year-old female with no reported significant PMH, admitted for upper back abscess and cellulitis and newly diagnosed Type II diabetes. Upper back abscess and cellulitis s/p I&D --examined after I&D earlier today with Dr. Frey; wound packed with 1.5 iodoform dressing --afebrile, no leukocytosis --06/15 abscess culture (+) staph latex coag positive --continue vanc (day #2) and Zosyn (day #2) --ID following Newly diagnosed Type II diabetes --Novolog sliding scale coverage --endocrine consult requested --nutrition consult, patient teaching Elevated blood pressure --continue lisinopril FEN Fluids: PO intake adequate Electrolytes: replete as indicated Nutriton: diabetic diet DVT prophylaxis: start subq lovenox in am if no bleeding problems; SCDs, oob, ambulation Dispo: continues to require inpatient care. Full code. Visit type - Emergency Visit Emergency Visit: Yes ED Registration Date: 06/16/19 Care time: The patient presented to the Emergency Department on the above date and was hospitalized for further evaluation of their emergent condition. - New Patient This patient is new to me today: Yes Date on this admission: 06/18/19 - Critical Care Critical Care patient: No Alesha Thomas NP: This documentation has been prepared by the Theo helton Maria, SCRIBE, under my direction and personally reviewed by me in its entirety. I confirm that the documentation accurately reflects all work, treatment, procedures, and medical decision making performed by me.
[2019-06-18] MEDS ORDERED: PIPERACILLIN/TAZOBACTAM 3.375 GM VIAL IVPB ONE ×2 (01:26→08:56)
[2019-06-18] MEDS ORDERED: SODIUM CHLORIDE 50 ML IVPB ONE ×2 (01:26→08:56)
[2019-06-18] MEDS: PIPERACILLIN/TAZOB 3.375 GM 3.375 GM in SODIUM CHLORIDE 50 ML IVPB SCH ×2 (02:05→09:22)
[2019-06-18] MEDS: VANCOMYCIN 1 GRAM (PRE-DOCKED) 1,000 MG/250 ML BAG IVPB SCH (06:20)
[2019-06-18] MEDS: oxyCODONE HCL 5 MG TABLET PO PRN (06:20)
[2019-06-18] MEDS: INSULIN SLIDING SCALE (NOVOLOG) 1 VIAL SQ SCH ×4 (06:49→22:28)
[2019-06-18 07:42] LABS: CALCIUM 9.3 mg/dl (8.5-10); CREATININE 0.7 mg/dl (0.55-1.3)
[2019-06-18] MEDS: LISINOPRIL 10 MG TABLET (FP) PO SCH (09:22)
--- NOTE | 2019-06-18 09:31 | PN ---
Progress Note, Physician Chief Complaint: s/p i&d of back abscess under general anesthesia History of Present Illness: post op day one - Current Medication List Current Medications: Active Medications Vancomycin HCl (Vancomycin (Pre-Docked)) 1,000 mg in 250 mls @ 166.667 mls/hr IVPB Q12H [facility]; Protocol Last Admin: 06/18/19 06:20 Dose: 166.667 mls/hr Piperacillin Sod/Tazobactam (Sod 3.375 gm/ Sodium Chloride) 50 mls @ 100 mls/ hr IVPB Q8H-IV [facility]BAR[facility]; Protocol Last Admin: 06/18/19 09:22 Dose: 100 mls/hr Insulin Aspart (Novolog Vial Sliding Scale -) 1 vial SQ ACHS [facility]; Protocol Last Admin: 06/18/19 06:49 Dose: 6 units Lisinopril (Prinivil) 10 mg PO DAILY [facility] Last Admin: 06/18/19 09:22 Dose: 10 mg Ondansetron HCl (Zofran Injection) 4 mg IVPUSH Q6H PRN PRN Reason: NAUSEA AND/OR VOMITING Oxycodone HCl (Roxicodone -) 5 mg PO Q4H PRN PRN Reason: PAIN LEVEL 1-5 Last Admin: 06/18/19 06:20 Dose: 5 mg Oxycodone HCl (Roxicodone -) 10 mg PO Q4H PRN PRN Reason: PAIN LEVEL 6-10 - Objective Vital Signs: Vital Signs Temperature 97.8 F 06/18/19 06:55 Pulse Rate 92 H 06/18/19 06:55 Respiratory Rate 18 06/18/19 06:55 Blood Pressure 141/79 06/18/19 06:55 O2 Sat by Pulse Oximetry (%) 100 06/18/19 06:55 Constitutional: Yes: Well Nourished Cardiovascular: Yes: WNL Respiratory: Yes: WNL Gastrointestinal: Yes: WNL Labs: CBC, BMP 06/17/19 07:20 06/18/19 06:53 INR, PTT INR 1.08 (0.83-1.09) 06/15/19 22:50 Assessment/Plan no adverse anesthetic events. dept of anesthesia will sign off care at this time.
[2019-06-18] MEDS ORDERED: HYDROmorphone HCL CARPU-JECT 1 MG/1 ML DISP.SYRIN ONE (11:28)
[2019-06-18] MEDS ORDERED: HYDROmorphone HCL CARPU-JECT 1 MG/1 ML DISP.SYRIN IVPB ONE (11:29)
--- NOTE | 2019-06-18 11:52 | PN ---
Progress Note (short form) - Note Progress Note: GENERAL SURGERY POD #1 s/p I and D abscess and debridement of non viable skin and subcutaneous fat No acute events per RN notes. Alert. Sitting up in bed. C/o minimal incisional tenderness. Denies n/v/f/c Afebrile. AVSS. WBC Trend 3 06/15/19 06/16/19 06/17/19 22:50 11:33 07:20 WBC 9.9 8.6 7.2 Gen: nad Right Upper Back: (1 mg Dilaudid administered prior too packing removal). Packing removed. Wound irrigated. Clean. No odor or surrounding erythema. Repacked and dresed. Problem List - Problems (1) Cellulitis of back Assessment/Plan: Wound repacked on rounds Premedicate prior too dressing changes Tight glycemic control Cont medical management Code(s): L03.312 - CELLULITIS OF BACK [ANY PART EXCEPT BUTTOCK] (2) Hyperglycemia Code(s): R73.9 - HYPERGLYCEMIA, UNSPECIFIED
--- NOTE | 2019-06-18 16:42 | OP ---
DATE OF OPERATION: 06/17/2019 PREOPERATIVE DIAGNOSIS: Abscess of the right upper back. POSTOPERATIVE DIAGNOSIS: Abscess of the right upper back. PROCEDURE: Incision and drainage of abscess and debridement of nonviable skin and subcutaneous fat. SURGEON: David Frey MD ANESTHESIA: General. OPERATIVE FINDINGS: There was a soft tissue abscess of the right upper back. There was devitalized skin and subcutaneous fat. The rest of the findings were unremarkable. DESCRIPTION OF PROCEDURE: The patient was placed on the operating room table in supine position, and after the induction of general anesthesia, the patient was turned to the left lateral decubitus position. The area over the abscess was prepped with Betadine and draped in sterile fashion. A time-out was taken. Incision was made with a scalpel and taken down through skin and subcutaneous fat, and purulent drainage was obtained and sent for culture and sensitivity. All nonviable skin and subcutaneous fat was sharply excised using a scalpel and sent for pathological examination. Hemostasis was secured with electrocautery and then the wound copiously irrigated with normal saline and peroxide. Hemostasis was then verified again and the wound packed with 1-1/2-inch iodoform gauze followed by dry, sterile dressings. The procedure was terminated at this point and the patient aroused from general anesthesia and transferred to the post anesthesia care unit in stable condition awake and alert. ESTIMATED BLOOD LOSS: 5 mL. REPLACEMENTS: Crystalloid. DRAINS: None. SPECIMEN: Nonviable skin and subcutaneous fat to Pathology. I, David Frey, was physically present in the operating room from the time the patient was placed on the operating room table until she was transferred to the post anesthesia care unit in [employer]. MD JOCE Plata/[id number] MTDD
--- NOTE | 2019-06-18 17:06 | PN ---
Documentation entered by Tresa Venegas SCRIBE, acting as scribe for Alesha Thomas NP. Physical Exam: SUBJECTIVE: Patient seen and examined at bedside. History of gestational diabetes in 2006. Has not received regular medical care since. OBJECTIVE: Vital Signs Period Temp Pulse Resp BP Sys/Street Pulse Ox Last 24 Hr 97.7 F-98.9 F 84-108 10-18 116-156/66-86 98-100 GENERAL: The patient is awake, alert, and fully oriented, in no acute distress. LUNGS: CTA HEART: Regular rate and rhythm, S1, S2 BACK: Large surgical dressing with strikethrough; outer dressing layers removed , no extension of erythema beyond surgical site, no fluctuance EXTREMITIES: 2+ pulses, warm, well-perfused, no edema. NEUROLOGICAL: Cranial nerves II through XII grossly intact. Normal speech, self- positions easily Laboratory Results - last 24 hr 06/17/19 06/17/19 06/17/19 11:39 13:08 16:51 Sodium Potassium Chloride Carbon Dioxide Anion Gap BUN Creatinine Est GFR (CKD-EPI)AfAm Est GFR (CKD-EPI)NonAf POC Glucometer 192 345 Random Glucose Calcium Urine HCG, Qual Negative 06/17/19 06/18/19 06/18/19 22:42 06:44 06:53 Sodium 134 L Potassium 5.0 Chloride 95 L Carbon Dioxide 27 Anion Gap 12 BUN 15.0 Creatinine 0.7 Est GFR (CKD-EPI)AfAm 120.43 Est GFR (CKD-EPI)NonAf 103.90 POC Glucometer 431 277 Random Glucose 259 H Calcium 9.3 Urine HCG, Qual Active Medications Generic Name Dose Route Start Last Admin Trade Name Freq PRN Reason Stop Dose Admin Vancomycin HCl 1,000 mg in 250 mls @ 166.667 mls/hr 06/16/19 18:30 06/18/19 06:20 Vancomycin (Pre-Docked) IVPB 166.667 mls/hr Q12H BARBARA Administration Protocol Piperacillin Sod/Tazobactam 50 mls @ 100 mls/hr 06/18/19 02:00 06/18/19 02:05 Sod 3.375 gm/ Sodium Chloride IVPB 100 mls/hr Q8H-IV [facility]BARA Administration Protocol Insulin Aspart 1 vial 06/16/19 07:00 06/18/19 06:49 Novolog Vial Sliding Scale - SQ 6 units ACHS BARBARA Administration Protocol Lisinopril 10 mg 06/16/19 10:00 06/17/19 09:13 Prinivil PO Not Given DAILY BARBARA Ondansetron HCl 4 mg 06/17/19 12:52 Zofran Injection IVPUSH Q6H PRN NAUSEA AND/OR VOMITING Oxycodone HCl 5 mg 06/17/19 12:52 06/18/19 06:20 Roxicodone - PO 5 mg Q4H PRN Administration PAIN LEVEL 1-5 Oxycodone HCl 10 mg 06/17/19 12:52 Roxicodone - PO Q4H PRN PAIN LEVEL 6-10 Microbiology 06/17/19 13:00 Abscess Gram Stain - Final 06/15/19 20:30 Abscess Gram Stain - Final 06/15/19 20:30 Abscess Wound Culture - Final Staphylococcus Aureus 06/15/19 22:50 Blood - Peripheral Venous Blood Culture - Preliminary NO GROWTH OBTAINED AFTER 48 HOURS, INCUBATION TO CONTINUE FOR 3 DAYS. 06/15/19 22:50 Blood - Peripheral Venous Blood Culture - Preliminary NO GROWTH OBTAINED AFTER 48 HOURS, INCUBATION TO CONTINUE FOR 3 DAYS. ASSESSMENT/PLAN: 44 year-old female with a history of gestational diabetes admitted for upper back abscess and cellulitis and newly diagnosed Type II diabetes. Upper back abscess and cellulitis s/p I&D on 06/17 --afebrile, no leukocytosis --06/15 abscess culture (+) MSSA --treated with zosyn and vanc x 2 days, d/c'd; start cefazolin --ID following Newly diagnosed Type II diabetes ----seen and evaluated by endocrine, start Levemir 12U at night, continue Novolog sliding scale coverage --nutrition consult, patient teaching Elevated blood pressure --continue lisinopril FEN Fluids: PO intake adequate Electrolytes: replete as indicated Nutriton: diabetic diet DVT prophylaxis: start subq lovenox in am if no bleeding problems; SCDs, oob, ambulation Dispo: continues to require inpatient care. Full code. Visit type - Emergency Visit Emergency Visit: Yes ED Registration Date: 06/16/19 Care time: The patient presented to the Emergency Department on the above date and was hospitalized for further evaluation of their emergent condition. - New Patient This patient is new to me today: No - Critical Care Critical Care patient: No - Discharge Referral Referred to [facility] Alesha Hadley, HAILEY: This documentation has been prepared by the Theo helton Maria, SCRIBE, under my direction and personally reviewed by me in its entirety. I confirm that the documentation accurately reflects all work, treatment, procedures, and medical decision making performed by me.
[2019-06-18] MEDS: CEFAZOLIN 2 GM/D5W 2 GM/50 ML ML IVPB SCH (17:41)
--- NOTE | 2019-06-18 18:11 | CONSULT ---
Consult Consult Specialty:: Endocrinology Referred by:: Alesha Thomas Reason for Consultation:: New onset DM - History of Present Illness Chief Complaint: Rt shoulder abscess History of Present Illness: This is a 44 year old female with no significant PMH who presented to the ER with complaints of an abscess on the posterior aspect of her right shoulder for the past 2 weeks, which has recently began to produce a discharge over the past few days. This has been associated with intermittent fevers and chills, recorded at 102 at home a few days ago, although she is not currently complaining of any chills and is afebrile. She was suffering from a viral illness and didn't pay much attention to the "bump' that was developing in the back of rt shoulder. Pt denies any polyuria, polydipsia or nocturia. No recent change in wt. No visual symptoms. Pt found to be hyperglycemic and referred for management. - History Source History Provided By: Patient, Medical Record - Past Medical History ...LMP: 06/09/19 ...: No - Alcohol/Substance Use Hx Alcohol Use: No - Smoking History Smoking history: Never smoked Home Medications - Allergies Allergies/Adverse Reactions: Allergies Allergy/AdvReac Type Severity Reaction Status Date / Time apple Allergy Intermediate Verified 06/17/19 10:56 banana Allergy Intermediate Verified 06/17/19 10:55 Baca And Derivatives Allergy Intermediate Verified 06/17/19 10:56 soy AdvReac Severe Verified 06/17/19 10:55 Family Medical History Family Hx Diabetes: Father Review of Systems - Review of Systems Constitutional: reports: No Symptoms Eyes: reports: No Symptoms HENT: reports: No Symptoms Neck: reports: No Symptoms Cardiovascular: reports: No Symptoms Respiratory: reports: No Symptoms Gastrointestinal: reports: No Symptoms Genitourinary: reports: No Symptoms Musculoskeletal: reports: No Symptoms Endocrine: reports: No Symptoms Hematology/Lymphatic: reports: No Symptoms Physical Exam Vital Signs: Vital Signs Temperature 97.4 F L 06/18/19 14:10 Pulse Rate 85 06/18/19 14:10 Respiratory Rate 18 06/18/19 14:10 Blood Pressure 140/77 06/18/19 14:10 O2 Sat by Pulse Oximetry (%) 100 06/18/19 10:00 Constitutional: Yes: No Distress, Calm Eyes: Yes: Conjunctiva Clear, EOM Intact HENT: Yes: Atraumatic, Normocephalic Neck: Yes: Supple, Trachea Midline Cardiovascular: Yes: Regular Rate and Rhythm Respiratory: Yes: Regular, CTA Bilaterally Gastrointestinal: Yes: Normal Bowel Sounds Musculoskeletal: Yes: Other (Dressing rt upper back) Extremities: Yes: WNL Edema: No Neurological: Yes: Alert, Oriented Labs: CBC, BMP 06/17/19 07:20 06/18/19 06:53 Assessment/Plan AP: Abscess back of Rt shoulder T2DM new onset Diet exercise discussed Diabetes education done Start Levemir 12 units daily at Novolog SS coverage Teach pt to self monitor blood glucose and self inject Insulin. Will f/u
[2019-06-18] MEDS: INSULIN (LEVEMIR) 100 UNITS/ML UNITS SQ SCH (22:27)
[2019-06-18] MEDS: ENOXAPARIN NA (PORCINE) 40 MG/0.4 ML DISP.SYRIN SQ SCH (22:31)
[2019-06-19] MEDS: CEFAZOLIN 2 GM/D5W 2 GM/50 ML ML IVPB SCH ×3 (01:06→17:11)
[2019-06-19] MEDS: INSULIN SLIDING SCALE (NOVOLOG) 1 VIAL SQ SCH ×4 (06:31→21:14)
[2019-06-19 07:32] LABS: BASO % 0.9 % (0-2.0); EOS % 1.7 % (0-4.5); HEMATOCRIT 28.7 % (32.4-45.2); HEMOGLOBIN 9.6 GM/dl (10.7-15.3); LYMPH % 33.3 % (8-40); MCH 28.4 pg (25.7-33.7); MCHC 33.4 g/dl (32.0-36.0); MEAN PLT VOLUME 8.8 fl (7.5-11.1); MONO % 7.8 % (3.8-10.2); NEUT % 56.3 % (42.8-82.8); PLATELET COUNT 419 K/MM3 (134-434); RBC 3.38 M/mm3 (3.60-5.2); WHITE BLOOD COUNT 8.8 K/mm3 (4.0-10.8)
[2019-06-19 07:54] LABS: BILIRUBIN,TOTAL 0.5 mg/dl (0.2-1); CALCIUM 8.4 mg/dl (8.5-10); CREATININE 0.5 mg/dl (0.55-1.3); MAGNESIUM 1.7 mg/dL (1.8-2.4); POTASSIUM 3.5 mmol/L (3.5-5.1); TOT PROT 5.9 g/dl (6.4-8.2)
[2019-06-19] MEDS ORDERED: MAGNESIUM SULF 50% (8.12 MEQ/2 ML-1 GM VIAL) IVPB ONE (08:05)
[2019-06-19] MEDS ORDERED: MAGNESIUM 1GM/D5W - 1 GM/100 ML IVPB IVPB ONE (08:15)
[2019-06-19] MEDS: oxyCODONE HCL 5 MG TABLET PO PRN (08:53)
[2019-06-19] MEDS: ENOXAPARIN NA (PORCINE) 40 MG/0.4 ML DISP.SYRIN SQ SCH (09:10)
[2019-06-19] MEDS: LISINOPRIL 10 MG TABLET (FP) PO SCH (10:00)
--- NOTE | 2019-06-19 10:01 | PN ---
Progress Note, Physician History of Present Illness: S/P I&D SOFT TISSUE ABSCESS R BACK NO C/O PAIN AFEBRILE WOUND C/S MSSA - Current Medication List Current Medications: Active Medications Enoxaparin Sodium (Lovenox -) 40 mg SQ DAILY [facility] Last Admin: 06/19/19 09:10 Dose: 40 mg Cefazolin Sodium/Dextrose (Ancef 2 Gm Premixed Ivpb -) 2 gm in 50 mls @ 100 mls /hr IVPB Q8H-IV [facility] Last Admin: 06/19/19 09:10 Dose: 100 mls/hr Insulin Aspart (Novolog Vial Sliding Scale -) 1 vial SQ HS [facility]; Protocol Last Admin: 06/18/19 22:28 Dose: 8 units Insulin Aspart (Novolog Vial Sliding Scale -) 1 vial SQ TIDAC [facility]; Protocol Last Admin: 06/19/19 06:31 Dose: Not Given Insulin Detemir (Levemir Vial) 12 units SQ HS [facility] Last Admin: 06/18/19 22:27 Dose: 12 units Lisinopril (Prinivil) 10 mg PO DAILY [facility] Last Admin: 06/18/19 09:22 Dose: 10 mg Ondansetron HCl (Zofran Injection) 4 mg IVPUSH Q6H PRN PRN Reason: NAUSEA AND/OR VOMITING Oxycodone HCl (Roxicodone -) 5 mg PO Q4H PRN PRN Reason: PAIN LEVEL 1-5 Last Admin: 06/19/19 08:53 Dose: 5 mg - Objective Vital Signs: Vital Signs Temperature 98.1 F 06/19/19 06:36 Pulse Rate 81 06/19/19 06:36 Respiratory Rate 16 06/19/19 08:29 Blood Pressure 118/69 06/19/19 06:36 O2 Sat by Pulse Oximetry (%) 99 06/19/19 08:29 Constitutional: Yes: No Distress Eyes: Yes: Conjunctiva Clear Cardiovascular: Yes: Regular Rate and Rhythm Respiratory: Yes: CTA Bilaterally Gastrointestinal: Yes: Normal Bowel Sounds, Soft. No: Tenderness Integumentary: Yes: Other (R POSTERIOR THORAX WOUND S/P I&D WITH PACKING IN PLACE SL SURROUNDING INDURATION NO ERYTHEMA) Labs: CBC, BMP 06/19/19 06:57 06/19/19 06:57 INR, PTT INR 1.08 (0.83-1.09) 06/15/19 22:50 Assessment/Plan S/P I&D R BACK SOFT TISSUE ABSCESS MSSA NEW ONSET DM MAY SUBSTITUTE KEFLEX 500MG PO QID X 7D OUTPATIENT SURGICAL FOLLOWUP
[2019-06-19] MEDS ORDERED: INSULIN (NOVOLOG) ASPART 100 UNITS/ML 10ML VIAL ONE ×2 (12:07→17:08)
--- NOTE | 2019-06-19 13:36 | PN ---
Progress Note (short form) - Note Progress Note: SURGERY POD #2 s/p I and D abscess and debridement of non viable skin and subcutaneous fat Last Vital Signs Temp Pulse Resp BP Pulse Ox 98.0 F 98 H 19 148/80 99 06/19/19 11:44 06/19/19 11:44 06/19/19 11:44 06/19/19 11:44 06/19/19 11:44 CBC, BMP 06/19/19 06:57 06/19/19 06:57 No acute events per RN notes. Alert. Sitting up in bed. C/o minimal incisional tenderness. Denies n/v/f/c Afebrile. AVSS. WBC Trend Gen: nad Right Upper Back: Packing removed. Wound irrigated. Clean. No odor or surrounding erythema. Repacked and dresed. Problem List - Problems (1) Abscess Assessment/Plan: Plan -wound is clean and healing well, will need continued packing once discharged either VNS or family member -pt cleared for discharge home from surgery standpoint. -pt should follow up with Dr. Frey in the office next week for wound check. Pt discussed with Dr. Frey who agrees with plan Code(s): L02.91 - CUTANEOUS ABSCESS, UNSPECIFIED
--- NOTE | 2019-06-19 15:22 | PATH ---
Surgical Pathology Report Patient Name: TONY WHITE Med. Rec. #: [id number] /Age/Gender: 1975 (Age: 44) / F Account: [id number] Location: [facility] MED-SURG Taken: 06/17/2019 Received: 06/17/2019 Reported: 06/19/2019 Physicians: MD Marlee Rajan M.D. Specimen(s) Received DEBRIDED TISSUE OF RIGHT UPPER BACK Clinical History Abscess of back Final Diagnosis DEBRIDED TISSUE OF RIGHT UPPER BACK: PORTIONS OF SKIN AND FIBROCONNECTIVE TISSUE WITH NECROSIS, MARKED ACUTE AND CHRONIC INFLAMMATION, AND ABSCESS. Electronically Signed Lindsay Douglas M.D. Gross Description Received in formalin labeled "right upper back debridement tissue," is a 6.0 x 4.3 x 1.4 cm aggregate of zheng, necrotic soft tissue fragments. Securities Counselor sections are submitted in one cassette. /06/18/2019 saudi06/18/2019
--- NOTE | 2019-06-19 16:33 | PN ---
Progress Note (short form) - Note Progress Note: No complaints Improving blood sugar Vital Signs Period Temp Pulse Resp BP Sys/Street Pulse Ox Last 24 Hr 97.6 F-98.6 F 81-98 16-19 118-152/59-85 97-99 PE: AOx3 Neck: Supple HEENT: EOMI Back: Dressing Rt upper back Lungs: CTA CVs: S1S2 Abd; Benign Ext: No edema Neuro: No focal deficit CMP Sodium 137 mmol/L (136-145) 06/19/19 06:57 Potassium 3.5 mmol/L (3.5-5.1) 06/19/19 06:57 Chloride 103 mmol/L (98-107) 06/19/19 06:57 Carbon Dioxide 28 mmol/L (21-32) 06/19/19 06:57 Anion Gap 6 MMOL/L (8-16) L 06/19/19 06:57 BUN 9.0 mg/dl (7-18) 06/19/19 06:57 Creatinine 0.5 mg/dl (0.55-1.3) L 06/19/19 06:57 Est GFR (CKD-EPI)AfAm 134.52 06/19/19 06:57 Est GFR (CKD-EPI)NonAf 116.07 06/19/19 06:57 POC Glucometer 183 UNITS (80-120) 06/19/19 11:56 Random Glucose 123 mg/dl (74-106) H 06/19/19 06:57 Hemoglobin A1c % 14.1 % (4.2-6.3) H 06/16/19 06:10 Calcium 8.4 mg/dl (8.5-10) L 06/19/19 06:57 Magnesium 1.7 mg/dL (1.8-2.4) L 06/19/19 06:57 Total Bilirubin 0.5 mg/dl (0.2-1) 06/19/19 06:57 AST 20 U/L (15-37) 06/19/19 06:57 ALT 14 U/L (13-61) 06/19/19 06:57 Alkaline Phosphatase 94 U/L (45-117) D 06/19/19 06:57 Total Protein 5.9 g/dl (6.4-8.2) L 06/19/19 06:57 Albumin 2.0 g/dl (3.4-5.0) L 06/19/19 06:57 Triglycerides 142 mg/dL (0-150) 06/16/19 11:33 Cholesterol 164 mg/dL (50-200) 06/16/19 11:33 Total LDL Cholesterol 109 mg/dL (5-100) H 06/16/19 11:33 HDL Cholesterol 29 mg/dL (40-60) L 06/16/19 11:33 Thyroxine (T4) 12.3 ug/dl (4.5-13.9) 06/16/19 11:33 Resin T3 Uptake 35.6 % (30-39) 06/16/19 11:33 Current Medications Generic Name Dose Route Start Last Admin Trade Name Freq PRN Reason Stop Dose Admin Enoxaparin Sodium 40 mg 06/18/19 22:00 06/19/19 09:10 Lovenox - SQ 40 mg DAILY [facility] Administration Cefazolin Sodium/Dextrose 2 gm in 50 mls @ 100 mls/hr 06/18/19 18:00 09:10 Ancef 2 Gm Premixed Ivpb - IVPB 100 mls/hr Q8H-IV [facility] Administration Insulin Aspart 1 vial 06/18/19 22:00 06/18/19 22:28 Novolog Vial Sliding Scale - SQ 8 units HS [facility] Administration Protocol Insulin Aspart 1 vial 06/19/19 07:00 06/19/19 12:00 Novolog Vial Sliding Scale - SQ 4 units TIDAC [facility] Administration Protocol Insulin Detemir 12 units 06/18/19 22:00 06/18/19 22:27 Levemir Vial SQ 12 units HS [facility] Administration Lisinopril 10 mg 06/16/19 10:00 06/19/19 10:00 Prinivil PO 10 mg DAILY [facility] Administration Ondansetron HCl 4 mg 06/17/19 12:52 Zofran Injection IVPUSH Q6H PRN NAUSEA AND/OR VOMITING Oxycodone HCl 5 mg 06/17/19 12:52 06/19/19 08:53 Roxicodone - PO 5 mg Q4H PRN Administration PAIN LEVEL 1-5 AP: Abscess back of Rt shoulder T2DM new onset: A1c 14.1 Diet exercise discussed Diabetes education done Levemir 12 units daily at Novolog SS coverage Adjust Insulin dose as necessary Teach pt to self monitor blood glucose and self inject Insulin. Will sign off Pt should f/u in the office in 2 weeks. I will be away until Jun 28. Dr Garcia is covering. Please call him if necessary.
[2019-06-19] MEDS: INSULIN (LEVEMIR) 100 UNITS/ML UNITS SQ SCH (21:14)
[2019-06-20] MEDS: CEFAZOLIN 2 GM/D5W 2 GM/50 ML ML IVPB SCH ×3 (01:20→17:33)
[2019-06-20] MEDS ORDERED: INSULIN (NOVOLOG) ASPART 100 UNITS/ML 10ML VIAL ONE ×2 (06:40→11:57)
[2019-06-20] MEDS: INSULIN SLIDING SCALE (NOVOLOG) 1 VIAL SQ SCH ×4 (06:46→21:49)
[2019-06-20] MEDS: ENOXAPARIN NA (PORCINE) 40 MG/0.4 ML DISP.SYRIN SQ SCH (09:11)
[2019-06-20] MEDS: LISINOPRIL 10 MG TABLET (FP) PO SCH (09:12)
[2019-06-20] MEDS: oxyCODONE HCL 5 MG TABLET PO PRN ×2 (14:04→21:48)
--- NOTE | 2019-06-20 14:40 | DS ---
Physical Exam: SUBJECTIVE: Patient seen and examined OBJECTIVE: Vital Signs Period Temp Pulse Resp BP Sys/Street Pulse Ox Last 24 Hr 97.7 F-99.6 F 90-99 18-18 115-143/65-76 99-100 PHYSICAL EXAM GENERAL: The patient is awake, alert, and fully oriented, in no acute distress. HEAD: Normal with no signs of trauma. EYES: PERRL, extraocular movements intact, sclera anicteric, conjunctiva clear. ENT: Ears normal, nares patent, oropharynx clear without exudates, moist mucous membranes. NECK: Trachea midline, full range of motion, supple. LUNGS: Breath sounds equal, clear to auscultation bilaterally, no wheezes, no crackles, no accessory muscle use. HEART: Regular rate and rhythm, S1, S2 without murmur, rub or gallop. ABDOMEN: Soft, nontender, nondistended, normoactive bowel sounds, no guarding, no rebound, no hepatosplenomegaly, no masses. EXTREMITIES: 2+ pulses, warm, well-perfused, no edema. NEUROLOGICAL: Cranial nerves II through XII grossly intact. Normal speech, gait not observed. PSYCH: Normal mood, normal affect. SKIN: Warm, dry, normal turgor, no rashes or lesions noted. LABS Laboratory Results - last 24 hr 06/19/19 06/19/19 06/20/19 17:01 20:33 06:07 POC Glucometer 205 138 196 06/20/19 11:47 POC Glucometer 224 HOSPITAL COURSE: Date of Admission:06/16/19 Date of Discharge: 06/20/19 Minutes to complete discharge: 35 Discharge Summary Problems reviewed: Yes Reason For Visit: CELLULTIS OF BACK EXCEPT BUTTOCK, HYPERGLYCEMIA Current Active Problems Abscess (Acute) Cellulitis of back (Acute) Hyperglycemia (Acute) Condition: Good - Instructions Diet, Activity, Other Instructions: Dr. Frey Discharge Instructions Dear TONY WHITE, Post Operative Instructions Physical activity Resume your normal everyday activity as tolerated no heavy lifting or exercise until seen by your surgeon. You may walk unlimited amounts of and climb stairs. You may resume driving the car when you feel safe and comfortable behind the wheel. Wound care Diet There are no dietary restrictions. Eat healthy, high-fiber foods. Drink 6 to 8 glasses of liquid each day. This will assist in keeping your bowels are regular. Pain management You may take Tylenol or acetaminophen or Ibuprofen (for example, Motrin, Advil etc.) Any pain prescription medication ordered should be taken as prescribed for moderate to severe pain. Call Dr. Frey for any of the following: Severe pain not relieved by medication Fever of 101 or higher Excessive bleeding or drainage on dressing Inability to urinate Call the office at [phone] for a post operative appointment in 7 - 10 days. Disposition: HOME This patient is new to me today: No Emergency Visit: Yes ED Registration Date: 06/16/19 Care time: The patient presented to the Emergency Department on the above date and was hospitalized for further evaluation of their emergent condition. Critical Care patient: No - Discharge Referral Referred to [facility] Med P.C.: No
--- NOTE | 2019-06-20 15:29 | PN ---
Physical Exam: SUBJECTIVE: Patient seen and examined at bedside. Observed dressing change by nursing staff. Patient was premedicated with oxycodone and tolerated procedure well. OBJECTIVE: Vital Signs Period Temp Pulse Resp BP Sys/Street Pulse Ox Last 24 Hr 97.7 F-99.6 F 90-99 18-18 115-143/65-76 99-100 GENERAL: The patient is awake, alert, and fully oriented, in no acute distress. LUNGS: CTA HEART: Regular rate and rhythm, S1, S2 BACK: Large, deep cavernous wound, edges clean, no exudate, no odor EXTREMITIES: 2+ pulses, warm, well-perfused, no edema. NEUROLOGICAL: Cranial nerves II through XII grossly intact. Normal speech, self- positions easily Laboratory Results - last 24 hr 06/19/19 06/19/19 06/20/19 17:01 20:33 06:07 POC Glucometer 205 138 196 06/20/19 11:47 POC Glucometer 224 Active Medications Generic Name Dose Route Start Last Admin Trade Name Freq PRN Reason Stop Dose Admin Enoxaparin Sodium 40 mg 06/18/19 22:00 06/20/19 09:11 Lovenox - SQ 40 mg DAILY [facility] Administration Cefazolin Sodium/Dextrose 2 gm in 50 mls @ 100 mls/hr 06/18/19 18:00 09:12 Ancef 2 Gm Premixed Ivpb - IVPB 100 mls/hr Q8H-IV [facility] Administration Insulin Aspart 1 vial 06/18/19 22:00 06/19/19 21:14 Novolog Vial Sliding Scale - SQ Not Given HS [facility] Protocol Insulin Aspart 1 vial 06/19/19 07:00 06/20/19 11:59 Novolog Vial Sliding Scale - SQ 6 units TIDAC [facility] Administration Protocol Insulin Detemir 12 units 06/18/19 22:00 06/19/19 21:14 Levemir Vial SQ 12 units HS [facility] Administration Lisinopril 10 mg 06/16/19 10:00 06/20/19 09:12 Prinivil PO 10 mg DAILY [facility] Administration Ondansetron HCl 4 mg 06/17/19 12:52 Zofran Injection IVPUSH Q6H PRN NAUSEA AND/OR VOMITING Oxycodone HCl 5 mg 06/17/19 12:52 06/20/19 14:04 Roxicodone - PO 5 mg Q4H PRN Administration PAIN LEVEL 1-5 ASSESSMENT/PLAN: 44 year-old female with a history of gestational diabetes admitted for upper back abscess and cellulitis and newly diagnosed Type II diabetes. Upper back abscess and cellulitis s/p I&D on 06/17 --afebrile, no leukocytosis --06/15 abscess culture (+) MSSA --continue cefazolin (day #3) --ID following Newly diagnosed Type II diabetes --seen and evaluated by endocrine, start Levemir 12U at night, continue Novolog sliding scale coverage --nutrition consult, patient teaching Elevated blood pressure --continue lisinopril FEN Fluids: PO intake adequate Electrolytes: replete as indicated Nutriton: diabetic diet, Prosource DVT prophylaxis: subq lovenox Dispo: needs to be seen at Wound Care, wait to discharge until Saturday; may not return to work until cleared by surgery; discharge on PO antibiotics; continues to require inpatient care. Full code. Visit type - Emergency Visit Emergency Visit: Yes ED Registration Date: 06/16/19 Care time: The patient presented to the Emergency Department on the above date and was hospitalized for further evaluation of their emergent condition. - New Patient This patient is new to me today: No - Critical Care Critical Care patient: No
--- NOTE | 2019-06-20 19:06 | PN ---
Documentation entered by Tresa Venegas SCRIBE, acting as scribe for Alesha Thomas NP. Physical Exam: SUBJECTIVE: Patient seen and examined at bedside. Pt reports abscess was healthcare acquired. OBJECTIVE: Vital Signs Period Temp Pulse Resp BP Sys/Street Pulse Ox Last 24 Hr 97.4 F-98.6 F 81-99 16-18 118-156/59-85 97-99 GENERAL: The patient is awake, alert, and fully oriented, in no acute distress. LUNGS: CTA HEART: Regular rate and rhythm, S1, S2 BACK: Dressing c/d/i EXTREMITIES: 2+ pulses, warm, well-perfused, no edema. NEUROLOGICAL: Cranial nerves II through XII grossly intact. Normal speech, self- positions easily Laboratory Results - last 24 hr 06/18/19 06/18/19 06/18/19 11:27 16:33 22:25 WBC RBC Hgb Hct MCV MCH MCHC RDW Plt Count MPV Absolute Neuts (auto) Neutrophils % Lymphocytes % Monocytes % Eosinophils % Basophils % Sodium Potassium Chloride Carbon Dioxide Anion Gap BUN Creatinine Est GFR (CKD-EPI)AfAm Est GFR (CKD-EPI)NonAf POC Glucometer 336 232 358 Random Glucose Calcium Magnesium Total Bilirubin AST ALT Alkaline Phosphatase Total Protein Albumin 06/19/19 06/19/19 06/19/19 06:05 06:57 06:57 WBC 8.8 RBC 3.38 L Hgb 9.6 L Hct 28.7 L MCV 85.0 MCH 28.4 MCHC 33.4 RDW 12.0 Plt Count 419 MPV 8.8 Absolute Neuts (auto) 5.0 Neutrophils % 56.3 Lymphocytes % 33.3 Monocytes % 7.8 Eosinophils % 1.7 Basophils % 0.9 Sodium 137 Potassium 3.5 Chloride 103 Carbon Dioxide 28 Anion Gap 6 L BUN 9.0 Creatinine 0.5 L Est GFR (CKD-EPI)AfAm 134.52 Est GFR (CKD-EPI)NonAf 116.07 POC Glucometer 139 Random Glucose 123 H Calcium 8.4 L Magnesium 1.7 L Total Bilirubin 0.5 AST 20 ALT 14 Alkaline Phosphatase 94 D Total Protein 5.9 L Albumin 2.0 L Active Medications Generic Name Dose Route Start Last Admin Trade Name Freq PRN Reason Stop Dose Admin Enoxaparin Sodium 40 mg 06/18/19 22:00 06/19/19 09:10 Lovenox - SQ 40 mg DAILY [facility] Administration Cefazolin Sodium/Dextrose 2 gm in 50 mls @ 100 mls/hr 06/18/19 18:00 09:10 Ancef 2 Gm Premixed Ivpb - IVPB 100 mls/hr Q8H-IV [facility] Administration Insulin Aspart 1 vial 06/18/19 22:00 06/18/19 22:28 Novolog Vial Sliding Scale - SQ 8 units HS [facility] Administration Protocol Insulin Aspart 1 vial 06/19/19 07:00 06/19/19 06:31 Novolog Vial Sliding Scale - SQ Not Given TIDAC [facility] Protocol Insulin Detemir 12 units 06/18/19 22:00 06/18/19 22:27 Levemir Vial SQ 12 units HS [facility] Administration Lisinopril 10 mg 06/16/19 10:00 06/18/19 09:22 Prinivil PO 10 mg DAILY [facility] Administration Ondansetron HCl 4 mg 06/17/19 12:52 Zofran Injection IVPUSH Q6H PRN NAUSEA AND/OR VOMITING Oxycodone HCl 5 mg 06/17/19 12:52 06/19/19 08:53 Roxicodone - PO 5 mg Q4H PRN Administration PAIN LEVEL 1-5 ASSESSMENT/PLAN: 44 year-old female with a history of gestational diabetes admitted for upper back abscess and cellulitis and newly diagnosed Type II diabetes. Upper back abscess and cellulitis s/p I&D on 06/17 --afebrile, no leukocytosis --06/15 abscess culture (+) MSSA --continue cefazolin (day #2) --daily dressing changes iodoform packing --ID following Newly diagnosed Type II diabetes --seen and evaluated by endocrine, continue Levemir 12U at night and Novolog sliding scale coverage --nutrition consult, patient teaching Elevated blood pressure --continue lisinopril FEN Fluids: PO intake adequate Electrolytes: replete as indicated Nutriton: diabetic diet, Prosource DVT prophylaxis: ssbq lovenox Dispo: continues to require inpatient care. Full code. Visit type - Emergency Visit Emergency Visit: Yes ED Registration Date: 06/16/19 Care time: The patient presented to the Emergency Department on the above date and was hospitalized for further evaluation of their emergent condition. - New Patient This patient is new to me today: No - Critical Care Critical Care patient: No Alesha Thomas, HAILEY: This documentation has been prepared by the Theo helton Maria, SCRIBE, under my direction and personally reviewed by me in its entirety. I confirm that the documentation accurately reflects all work, treatment, procedures, and medical decision making performed by me.
[2019-06-20] MEDS: INSULIN (LEVEMIR) 100 UNITS/ML UNITS SQ SCH (21:48)
[2019-06-21] MEDS: CEFAZOLIN 2 GM/D5W 2 GM/50 ML ML IVPB SCH ×3 (03:08→18:34)
[2019-06-21] MEDS ORDERED: INSULIN (NOVOLOG) ASPART 100 UNITS/ML 10ML VIAL ONE ×2 (06:57→18:38)
[2019-06-21] MEDS: INSULIN SLIDING SCALE (NOVOLOG) 1 VIAL SQ SCH ×4 (06:58→21:28)
[2019-06-21] MEDS: AMINO ACIDS/PROTEIN HYDROLYS 30 ML LIQUID.PKT PO SCH ×2 (09:04→18:34)
[2019-06-21] MEDS: ENOXAPARIN NA (PORCINE) 40 MG/0.4 ML DISP.SYRIN SQ SCH (09:05)
[2019-06-21 09:27] LABS: ALBUMIN 2.2 g/dl (3.4-5.0); CALCIUM 8.4 mg/dl (8.5-10); CREATININE 0.6 mg/dl (0.55-1.3); POTASSIUM 3.6 mmol/L (3.5-5.1)
[2019-06-21 09:36] LABS: BILIRUBIN,TOTAL 0.2 mg/dl (0.2-1)
--- NOTE | 2019-06-21 09:36 | PN ---
Physical Exam: SUBJECTIVE: Patient seen and examined at bedside. OBJECTIVE: Vital Signs Period Temp Pulse Resp BP Sys/Street Pulse Ox Last 24 Hr 98.5 F-99.6 F 81-100 16-18 104-144/63-82 99-100 GENERAL: The patient is awake, alert, and fully oriented, in no acute distress. LUNGS: CTA HEART: Regular rate and rhythm, S1, S2 BACK: Large, deep cavernous wound, edges clean, no exudate, no odor EXTREMITIES: 2+ pulses, warm, well-perfused, no edema. NEUROLOGICAL: Cranial nerves II through XII grossly intact. Normal speech, self- positions easily Laboratory Results - last 24 hr 06/20/19 06/20/19 06/20/19 11:47 16:28 21:46 POC Glucometer 224 172 239 06/21/19 06:37 POC Glucometer 169 Active Medications Generic Name Dose Route Start Last Admin Trade Name Freq PRN Reason Stop Dose Admin Amino Acids 30 ml 06/21/19 08:00 06/21/19 09:04 Prosource No Carb Liquid Pkt PO 30 ml BID@0800,1730 [facility] Administration Enoxaparin Sodium 40 mg 06/18/19 22:00 06/21/19 09:05 Lovenox - SQ 40 mg DAILY [facility] Administration Cefazolin Sodium/Dextrose 2 gm in 50 mls @ 100 mls/hr 06/18/19 18:00 09:05 Ancef 2 Gm Premixed Ivpb - IVPB 100 mls/hr Q8H-IV [facility] Administration Insulin Aspart 1 vial 06/18/19 22:00 06/20/19 21:49 Novolog Vial Sliding Scale - SQ 2 units HS [facility] Administration Protocol Insulin Aspart 1 vial 06/19/19 07:00 06/21/19 06:58 Novolog Vial Sliding Scale - SQ 4 units TIDAC [facility] Administration Protocol Insulin Detemir 12 units 06/18/19 22:00 06/20/19 21:48 Levemir Vial SQ 12 units HS [facility] Administration Lisinopril 10 mg 06/16/19 10:00 06/20/19 09:12 Prinivil PO 10 mg DAILY [facility] Administration Ondansetron HCl 4 mg 06/17/19 12:52 Zofran Injection IVPUSH Q6H PRN NAUSEA AND/OR VOMITING Oxycodone HCl 5 mg 06/17/19 12:52 06/20/19 21:48 Roxicodone - PO 5 mg Q4H PRN Administration PAIN LEVEL 1-5 ASSESSMENT/PLAN: 44 year-old female with a history of gestational diabetes admitted for upper back abscess and cellulitis and newly diagnosed Type II diabetes. Upper back abscess and cellulitis s/p I&D on 06/17 --afebrile, no leukocytosis --06/15 abscess culture (+) MSSA --continue cefazolin (day #4) --daily dressing/packing change --ID following Newly diagnosed Type II diabetes --seen and evaluated by endocrine, continue Levemir 12U at night and Novolog sliding scale coverage; blood sugar levels are improved --nutrition consult, patient teaching Elevated blood pressure --continue lisinopril FEN Fluids: PO intake adequate Electrolytes: replete as indicated Nutriton: diabetic diet, Prosource DVT prophylaxis: subq lovenox Dispo: needs to be seen at Wound Care, may need wound vac; may not return to work until cleared by surgery; discharge on PO antibiotics; continues to require inpatient care. Full code. Visit type - Emergency Visit Emergency Visit: Yes ED Registration Date: 06/16/19 Care time: The patient presented to the Emergency Department on the above date and was hospitalized for further evaluation of their emergent condition. - New Patient This patient is new to me today: No - Critical Care Critical Care patient: No
[2019-06-21 10:57] LABS: BASO % 0.9 % (0-2.0); EOS % 4.7 % (0-4.5); HEMOGLOBIN 10.6 GM/dL (10.7-15.3); LYMPH % 33.3 % (8-40); MCH 28.4 pg (25.7-33.7); MCHC 34.1 g/dl (32.0-36.0); MEAN CELL VOLUME 83.5 fl (80-96); MEAN PLT VOLUME 8.8 fl (7.5-11.1); MONO % 14.1 % (3.8-10.2); PLATELET COUNT 394 K/MM3 (134-434); RBC 3.72 M/mm3 (3.60-5.2); RDW 13.4 % (11.6-15.6); WHITE BLOOD COUNT 6.4 K/mm3 (4.0-10.0)
[2019-06-21] MEDS: LISINOPRIL 10 MG TABLET (FP) PO SCH (11:32)
[2019-06-21] MEDS: INSULIN (LEVEMIR) 100 UNITS/ML UNITS SQ SCH (21:40)
[2019-06-22] MEDS: CEFAZOLIN 2 GM/D5W 2 GM/50 ML ML IVPB SCH ×2 (02:04→09:32)
--- NOTE | 2019-06-22 08:43 | DS ---
Physical Exam: SUBJECTIVE: Patient seen and examined OBJECTIVE: Vital Signs Period Temp Pulse Resp BP Sys/Street Pulse Ox Last 24 Hr 98.4 F-99.5 F 85-100 16-18 122-154/71-81 98-100 PHYSICAL EXAM GENERAL: The patient is awake, alert, and fully oriented, in no acute distress. LUNGS: CTA HEART: Regular rate and rhythm, S1, S2 BACK: Large surgical dressing c/d/i, not disturbed, surgical site not visualized EXTREMITIES: 2+ pulses, warm, well-perfused, no edema. NEUROLOGICAL: Cranial nerves II through XII grossly intact. Normal speech, self- positions easily LABS Laboratory Results - last 24 hr 06/21/19 06/21/19 06/21/19 06:00 06:00 11:13 WBC 6.4 RBC 3.72 Hgb 10.6 L Hct 31.0 L MCV 83.5 MCH 28.4 MCHC 34.1 RDW 13.4 Plt Count 394 MPV 8.8 Absolute Neuts (auto) 3.0 Neutrophils % 47.0 D Lymphocytes % 33.3 Monocytes % 14.1 H D Eosinophils % 4.7 H Basophils % 0.9 Nucleated RBC % 0 Sodium 134 L Potassium 3.6 Chloride 98 Carbon Dioxide 24 Anion Gap 12 BUN 9.0 Creatinine 0.6 Est GFR (CKD-EPI)AfAm 126.69 Est GFR (CKD-EPI)NonAf 109.31 POC Glucometer 191 Random Glucose 163 H Calcium 8.4 L Total Bilirubin 0.2 AST 17 ALT 11 L Alkaline Phosphatase 85 Total Protein 6.0 L Albumin 2.2 L 06/21/19 06/21/19 06/22/19 18:28 21:03 06:21 WBC RBC Hgb Hct MCV MCH MCHC RDW Plt Count MPV Absolute Neuts (auto) Neutrophils % Lymphocytes % Monocytes % Eosinophils % Basophils % Nucleated RBC % Sodium Potassium Chloride Carbon Dioxide Anion Gap BUN Creatinine Est GFR (CKD-EPI)AfAm Est GFR (CKD-EPI)NonAf POC Glucometer 249 186 213 Random Glucose Calcium Total Bilirubin AST ALT Alkaline Phosphatase Total Protein Albumin HOSPITAL COURSE: Date of Admission:06/16/19 Date of Discharge: 06/22/19 44 year-old female with no reported significant PMH, admitted for upper back abscess and cellulitis and newly diagnosed Type II diabetes. Upper back abscess and cellulitis s/p I&D --large abscess upper back with copious purulent drainage --s/p I&D and debridement with Dr. Frey on 06/17; deep wound packed with 1.5 iodoform --06/15 abscess culture (+) MSSA --initially treated with vanc and Zosyn, switched to cefazolin, discharged on Keflex to continue another 4 days of treatment Newly diagnosed Type II diabetes --seen and evaluated by Dr. Allen --discharged on a regimen of Levemir 12U qhs and Novolog sliding scale coverage --diabetic teaching by medical, nursing, and nutritional staff --outpatient followup with Dr. Allen Elevated blood pressure --continued lisinopril Minutes to complete discharge: 35 Discharge Summary Problems reviewed: Yes Reason For Visit: CELLULTIS OF BACK EXCEPT BUTTOCK, HYPERGLYCEMIA Current Active Problems Abscess (Acute) Cellulitis of back (Acute) Hyperglycemia (Acute) Condition: Improved - Instructions Diet, Activity, Other Instructions: A prescription has been sent to your pharmacy for Keflex which is an antibiotic. Take this medication as directed and be sure to finish all the medication. Prescriptions have been sent to your pharmacy for diabetic supplies. You MUST follow up with Dr. Frey (surgeon) and Dr. Allen (diabetes doctor) within one week of your discharge. Insulin dosing Every night you should give yourself an injection of Levemir (long-acting insulin) 12 units Every day, 15 minutes before breakfast, before lunch, before dinner, and before bedtime, you should fingerstick and obtain a blood sugar reading. You should then inject yourself with Novolog (short-acting insulin) by following this scale : Blood Sugar Dose to Administer (Units) 101-150 0 151-200 4 201-250 6 251-300 8 301-350 10 351-400 12 >400 [address] your doctor Dr. Frey Discharge Instructions Physical activity Resume your normal everyday activity as tolerated no heavy lifting or exercise until seen by your surgeon. You may walk unlimited amounts of and climb stairs. You may resume driving the car when you feel safe and comfortable behind the wheel. Wound care You may shower; pack the wound lightly with saline wet to dry dressing Diet There are no dietary restrictions. Eat healthy, high-fiber foods. Drink 6 to 8 glasses of liquid each day. This will assist in keeping your bowels are regular. Pain management You may take Tylenol or acetaminophen or Ibuprofen (for example, Motrin, Advil etc.) Any pain prescription medication ordered should be taken as prescribed for moderate to severe pain. Call Dr. Frey for any of the following: Severe pain not relieved by medication Fever of 101 or higher Excessive bleeding or drainage on dressing Inability to urinate Call the office at [phone] for a post operative appointment in 7 - 10 days. Referrals: David Frey MD [Staff Physician] - 1 Week Sania Allen MD [Staff Physician] - 1 Week Disposition: HOME - Home Medications Comprehensive Discharge Medication List: Ambulatory Orders Alcohol Antiseptic Pads [Alcohol Prep Pad] 1 box TP ACHS #2 box 06/20/19 Gauze Bandage 1 box TP ACHS #2 box 06/20/19 Insulin Aspart [Novolog] 100 unit SQ ACHS #1 cartridge 06/20/19 Insulin Detemir [Levemir Flextouch] 100 unit SQ HS #1 insuln.pen 06/20/19 Lisinopril [Prinivil] 10 mg PO DAILY #30 tablet 06/20/19 Miscellaneous Medical Supply [Glucometer Device] 1 each TP ACHS #1 kit 06/20/19 Miscellaneous Medical Supply [Glucometer Test Strips #100] 1 each TP ACHS #2 box 06/20/19 This patient is new to me today: No Emergency Visit: Yes ED Registration Date: 06/16/19 Care time: The patient presented to the Emergency Department on the above date and was hospitalized for further evaluation of their emergent condition. Critical Care patient: No - Discharge Referral Referred to [facility] No
[2019-06-22] MEDS: ENOXAPARIN NA (PORCINE) 40 MG/0.4 ML DISP.SYRIN SQ SCH (09:31)
[2019-06-22] MEDS: AMINO ACIDS/PROTEIN HYDROLYS 30 ML LIQUID.PKT PO SCH (09:32)
[2019-06-22] MEDS: INSULIN SLIDING SCALE (NOVOLOG) 1 VIAL SQ SCH ×2 (09:32→13:15)
[2019-06-22] MEDS: LISINOPRIL 10 MG TABLET (FP) PO SCH (09:32)
--- NOTE | 2019-06-22 15:35 | PN ---
Progress Note (short form) - Note Progress Note: Attending Surgeon POD#5 No c/o; wound care in progress VSS AF wound-c/d and w/o discharge; granulating well ~ 6 x 5 x 1 cm. w/minimal undermining. IMP: doing well PLAN: May be d/c'ed to office f/u; she may shower and pack wound lightly w/ saline wet to dry dressing; instruct patients friend on wound care which she has agreed to. David Frey MD FACS
[2019-06-22 16:16] VITALS: TEMP 97.8
[2019-06-22 16:18] VITALS: BP 117/67; PULSE 72
== END 2019-06-22 17:55 | disposition home or self-care (01) | DRG 571 ==
LOC: JERFT 20:24 → JERBED 06-16 01:34 → FM/S 06-16 12:16
PROVIDERS: ADMIT Internal Medicine; ATTEND Nurse Practitioner Acute Care
PROC: 0W9 Anatomical Regions, General, Drainage (ICD-10-PCS; 2019-06-17)
PROC: 0JB70ZZ Excision of Back Subcutaneous Tissue and Fascia, Open Approach (ICD-10-PCS; principal; 2019-06-17 11:30)
DX: L03.312 Cellulitis of back [any part except buttock and flank] (principal); L02.31 Cutaneous abscess of buttock; E46 Unspecified protein-calorie malnutrition; B95.61 Methicillin susceptible Staphylococcus aureus infection as the cause of diseases classified elsewhere; E88.09 Other disorders of plasma-protein metabolism, not elsewhere classified; E66.3 Overweight; Z68.27 Body mass index [BMI] 27.0-27.9, adult; I10 Essential (primary) hypertension; E86.0 Dehydration; D47.3 Essential (hemorrhagic) thrombocythemia; E11.65 Type 2 diabetes mellitus with hyperglycemia
CPT/HCPCS: 36415; 80048; 80053; 80061; 81003; 82962; 83036; 83721; 83735; 84436; 84479; 84703; 85025; 85610; 85730; 87040; 87070; 87186; 87205; 88304-TC; 93005; 93010; 94760; 99285-25; J0131; J7030

== ENCOUNTER 2021-03-04 18:14 | Emergency (ER) | payer OTHER ==
[2021-03-04 18:25] VITALS: TEMP 98.4; BMI 29.2
[2021-03-04] MEDS ORDERED: DEXAMETHASONE SOD PHOSPHATE 10 MG/1 ML VIAL IVPUSH ONE (18:48)
[2021-03-04] MEDS ORDERED: ALBUTEROL SO4 2.5/IPRATROPIUM 0.5 INH SOL 3 ML VIAL.NEB. NEB ONE ×2 (19:25→20:13)
[2021-03-04] MEDS ORDERED: DEXAMETHASONE SOD PHOSPHATE 10 MG/1 ML VIAL ONE (19:25)
[2021-03-04] MEDS ORDERED: AZITHROMYCIN IVPB 500 MG in DEXTROSE 5%-WATER - 250 ML IVPB ONE (19:37)
[2021-03-04] MEDS ORDERED: CEFTRIAXONE 1,000 MG in DEXTROSE 5%-WATER - 50 ML IVPB ONE (19:37)
[2021-03-04] MEDS: ALBUTEROL SO4 2.5/IPRATROPIUM 0.5 INH SOL 3 ML VIAL.NEB. NEB SCH ×3 (19:41→20:12)
[2021-03-04] MEDS ORDERED: AZITHROMYCIN IVPB 500 MG/250 ML BAG IVPB ONE (19:44)
[2021-03-04] MEDS ORDERED: CEFTRIAXONE 1 GM/50 ML BAG ONE ×2 (19:44→20:13)
[2021-03-04 19:54] LABS: BASO % 2.8 % (0-2.0); EOS % 2.6 % (0-4.5); HEMATOCRIT 39.5 % (32.4-45.2); HEMOGLOBIN 13.1 GM/dL (10.7-15.3); LYMPH % 25.7 % (8-40); MCH 28.1 pg (25.7-33.7); MCHC 33.2 g/dl (32.0-36.0); MEAN CELL VOLUME 84.7 fl (80-96); MEAN PLT VOLUME 11.1 fl (7.5-11.1); MONO % 5.9 % (3.8-10.2); PLATELET COUNT 209 10^3/uL (134-434); RBC 4.67 M/mm3 (3.60-5.2); RDW 13.8 % (11.6-15.6); WHITE BLOOD COUNT 11.7 K/mm3 (4.0-10.0)
[2021-03-04 20:10] LABS: CHLORIDE 106 mmol/L (98-107); SODIUM 138 mmol/L (136-145)
[2021-03-04 20:12] LABS: ALBUMIN 2.8 g/dl (3.4-5.0); ANION GAP 10 MMOL/L (8-16); CALCIUM 8.6 mg/dL (8.5-10.1); CO2 22 mmol/L (21-32)
[2021-03-04 20:13] LABS: BLOOD UREA NITROGEN 16.7 mg/dL (7-18)
[2021-03-04 20:14] LABS: GLUCOSE,RANDOM 370 mg/dL (74-106)
[2021-03-04 20:16] LABS: CREATININE 0.8 mg/dL (0.55-1.3); SGOT/AST 103 U/L (15-37); SGPT/ALT 77 U/L (13-61)
[2021-03-04 20:17] LABS: BILIRUBIN,TOTAL 0.4 mg/dL (0.2-1); TOT PROT 7.5 g/dl (6.4-8.2)
[2021-03-04 20:19] LABS: ALK PHOS 195 U/L (45-117)
[2021-03-04 20:21] LABS: N-TERMINAL BNP 2835.8 pg/ml (5-125)
[2021-03-04] MEDS ORDERED: ASPIRIN 81 MG CHEWABLE TABLETS PO ONE (20:55)
[2021-03-04] MEDS ORDERED: HEPARIN NA (PORCINE) 5,000 UNITS/ML 1ML VIAL IVPUSH ONE (21:14)
[2021-03-04] MEDS ORDERED: HEPARIN - 25,000 UNIT in SODIUM CHLORIDE 495 ML IV SCH (21:15)
[2021-03-04] MEDS ORDERED: HEPARIN NA (PORCINE) 5,000 UNITS/ML 1ML VIAL IVPUSH PRN ×2 (21:15)
[2021-03-04 22:06] VITALS: PULSE 119
[2021-03-04] MEDS ORDERED: INSULIN (NOVOLOG) ASPART 100 UNITS/ML 10ML VIAL SQ ONE (22:07)
[2021-03-04 22:40] VITALS: BP 137/86
== END 2021-03-04 22:42 | disposition short-term general hospital (02) ==
LOC: JER 18:14 → JVIRT 18:14
PROC: 3E0F7GC Introduction of Other Therapeutic Substance into Respiratory Tract, Via Natural or Artificial Opening (ICD-10-PCS; principal; 2021-03-04)
PROC: 3E03329 Introduction of Other Anti-infective into Peripheral Vein, Percutaneous Approach (ICD-10-PCS; 2021-03-04)
PROC: 3E03329 Introduction of Other Anti-infective into Peripheral Vein, Percutaneous Approach (ICD-10-PCS; 2021-03-04)
PROC: 3E03329 Introduction of Other Anti-infective into Peripheral Vein, Percutaneous Approach (ICD-10-PCS; 2021-03-04)
PROC: 3E033GC Introduction of Other Therapeutic Substance into Peripheral Vein, Percutaneous Approach (ICD-10-PCS; 2021-03-04)
PROC: 3E033GC Introduction of Other Therapeutic Substance into Peripheral Vein, Percutaneous Approach (ICD-10-PCS; 2021-03-04)
PROC: 3E033GC Introduction of Other Therapeutic Substance into Peripheral Vein, Percutaneous Approach (ICD-10-PCS; 2021-03-04)
PROC: 3E033GC Introduction of Other Therapeutic Substance into Peripheral Vein, Percutaneous Approach (ICD-10-PCS; 2021-03-04)
DX: J18.9 Pneumonia, unspecified organism (principal); J45.901 Unspecified asthma with (acute) exacerbation; J90 Pleural effusion, not elsewhere classified; I21.3 ST elevation (STEMI) myocardial infarction of unspecified site
CPT/HCPCS: 36415; 71045-TC-FY; 71275-TC; 80053; 82550; 82553; 83880; 84484; 84703; 85025; 85379; 87804; 87807; 93005; 93010; 99285-25; C9803; J1100; J1644; Q9967; U0003; U0005

== ENCOUNTER → 2024-10-07 | Day surgery (SDC) | payer BC | END | disposition home or self-care (01) | LOC: JRADUS-SUR 09:16 | PROVIDERS: ATTEND Specialist | PROC: 0H9U3ZX Drainage of Left Breast, Percutaneous Approach, Diagnostic (ICD-10-PCS; principal; 2024-10-07) | DX: N60.02 Solitary cyst of left breast (principal) | CPT/HCPCS: 19000; 76942-TC; 87899; 88173; 88305-TC ==